=== PATIENT | male | born 1930 | race Caucasian/White ===

== ENCOUNTER 2017-11-26 18:06 | Inpatient (IN) ==
--- NOTE | 2017-11-26 18:16 | Emergency Department Note ---
Disposition Clinical Impression: Hypoglycemia Disposition: Still a Patient General Adult HPI - General Stated complaint: low sugar Time Seen by Provider: 11/26/17 18:15 - Related Data Home Medications Medication Instructions Recorded Confirmed Atenolol [Tenormin] 100 mg PO DAILY 09/30/15 11/26/17 Atorvastatin [Lipitor] 40 mg PO DAILY 09/30/15 11/26/17 Clopidogrel [Plavix] 75 mg PO DAILY 09/30/15 11/26/17 Fenofibrate,Micronized [Lofibra] 134 mg PO DAILY 09/30/15 11/26/17 Glimepiride [Amaryl] 4 mg PO DAILY 09/30/15 11/26/17 Insulin Glargine,Hum.rec.anlog 10 unit SQ HS 09/30/15 11/26/17 [Lantus Solostar] Lisinopril/Hydrochlorothiazide 1 tab PO DAILY 09/30/15 11/26/17 [Zestoretic 20-25 mg Tablet] Sitagliptin Phosphate [Januvia] 50 mg PO DAILY 09/30/15 11/26/17 Aspirin [Lo-Dose Aspirin EC] 81 mg PO DAILY 11/26/17 11/26/17 Cholecalciferol (D-3) [Vitamin D] 1,000 unit PO DAILY 11/26/17 11/26/17 [place]-3/Dha/Epa/Fish Oil [Fish Oil 1 cap PO DAILY 11/26/17 11/26/17 1,000 mg Softgel] Previous Rx's Medication Instructions Recorded Haloperidol Lactate [Haldol] 2 mg IV Q6HR PRN #5 vial 10/05/15 Allergies Allergy/AdvReac Type Severity Reaction Status Date / Time No Known Allergies Allergy Verified 11/26/17 18:41 Past Medical History - Past Medical History Medical history: Reports: CVA, diabetes, hyperlipidemia, hypertension, myocardial infarction, RA Surgical history: Reports: other Psychiatric history: Reports: no psych history - Social History Smoking Status: Former smoker Smokeless Tobacco Status: No Alcohol use: Reports: none Drug use: Reports: none Course Vital Signs Temperature 95.0 F L 11/26/17 18:11 Pulse Rate 72 11/26/17 18:11 Respiratory Rate 18 11/26/17 18:11 Blood Pressure 119/78 11/26/17 18:11 O2 Sat by Pulse Oximetry 98 11/26/17 18:11 Temperature 95.0 F L 11/26/17 18:11 Pulse Rate 72 11/26/17 18:11 Respiratory Rate 18 11/26/17 18:11 Blood Pressure 119/78 11/26/17 18:11 O2 Sat by Pulse Oximetry 98 11/26/17 18:11 Oxygen Delivery Oxygen Delivery Room Air Medical Decision Making - Lab Data Lab Results 11/26/17 Range/Units 18:14 POC Glucose 114 H (70-99) mg/dL Attestation Statement - Attestation Attestation: I examined this patient and my medical decision-making was reviewed with the Resident Physician. I agree with the documented findings, disposition and treatment plan as described except to the extent set forth below. Patient to the ED with altered mental status. The patient was laying on the floor acting strange and daughter called 911. They found him with a blood sugar in the 50s. They administered some oral glucose and orange juice and he dropped to the 40s. He was given half an amp of D50 and transported here. Patient is normally alert and oriented 3 but does not know the year. On examination he is awake and alert. Oriented 2. Moving all extremities. Lungs clear. Plan. We will check blood sugar. Basic labs. Awaiting family to arrive with his med list. Daughter present has his medication list which confirms that he is on Amaryl. Patient will need at least a 24-hour observation. Will be signed out to night clerk.
[2017-11-26] MEDS ORDERED: 0.9 % Sodium Chloride 1,000 ML IVC ONE (18:47)
--- NOTE | 2017-11-26 19:08 | Emergency Department Note ---
Disposition Clinical Impression: Hypoglycemia Disposition: Still a Patient Referrals: Pedro Tubbs MD [Primary Care Provider] - Altered Mental Status HPI - General Chief Complaint: ED General Medical Stated Complaint: low sugar Time Seen by Provider: 11/26/17 18:15 Source: EMS Mode of arrival: EMS Limitations: altered mental status, age Nursing Notes Reviewed: Yes Vital Signs Reviewed: Yes - History of Present Illness HPI Narrative: 86-year-old diabetic on glyburide who presents after an episode of shaking and jerking, decreased responsiveness, found by EMS to have a blood sugar in the 40s , was administered some D50 in route to the hospital his blood sugar responded to 150 at the current time. Patient denies any chest pain headache abdominal pain. Patient states he is not sure what happened. He somewhat confused most history is obtained from EMS and his family who is at bedside. They have to scrub when he was having as a possible seizure. He has no history of seizures, no history of strokes. Patient is not anticoagulated. MD complaint: altered mental status, confusion Onset (ago): hour(s) Time: 17:00 Timing confirmed by: family member Consistency of Symptoms: waxing and waning Context: diabetes Associated symptoms: Reports: weakness. Denies: chest pain, diaphoresis, fever Treatments prior to arrival: glucose - Related Data Home Medications Medication Instructions Recorded Confirmed Atenolol [Tenormin] 100 mg PO DAILY 09/30/15 11/26/17 Atorvastatin [Lipitor] 40 mg PO DAILY 09/30/15 11/26/17 Clopidogrel [Plavix] 75 mg PO DAILY 09/30/15 11/26/17 Fenofibrate,Micronized [Lofibra] 134 mg PO DAILY 09/30/15 11/26/17 Glimepiride [Amaryl] 4 mg PO DAILY 09/30/15 11/26/17 Insulin Glargine,Hum.rec.anlog 10 unit SQ HS 09/30/15 11/26/17 [Lantus Solostar] Lisinopril/Hydrochlorothiazide 1 tab PO DAILY 09/30/15 11/26/17 [Zestoretic 20-25 mg Tablet] Sitagliptin Phosphate [Januvia] 50 mg PO DAILY 09/30/15 11/26/17 Aspirin [Lo-Dose Aspirin EC] 81 mg PO DAILY 11/26/17 11/26/17 Cholecalciferol (D-3) [Vitamin D] 1,000 unit PO DAILY 11/26/17 11/26/17 [place]-3/Dha/Epa/Fish Oil [Fish Oil 1 cap PO DAILY 11/26/17 11/26/17 1,000 mg Softgel] Previous Rx's Medication Instructions Recorded Haloperidol Lactate [Haldol] 2 mg IV Q6HR PRN #5 vial 10/05/15 Allergies Allergy/AdvReac Type Severity Reaction Status Date / Time No Known Allergies Allergy Verified 11/26/17 18:41 All systems ED: reviewed and negative except as stated. Review of Systems: As Per HPI Constitutional: Reports: weakness. Denies: fever, chills ENT ED: Denies: ear pain Cardiovascular: Denies: chest pain Respiratory: Denies: cough, dyspnea Gastrointestinal: Denies: abdominal pain, nausea, vomiting, hematemesis, melena , hematochezia Genitourinary: Denies: urgency, dysuria Musculoskeletal: Denies: back pain Neurological: Reports: as per HPI, weakness, confusion. Denies: headache Past Medical History - Past Medical History Attestation: Yes The following information was validated with the patient. Source: patient Medical history: Reports: CVA, diabetes, hyperlipidemia, hypertension, myocardial infarction, RA Surgical history: Reports: other Psychiatric history: Reports: no psych history - Social History Smoking Status: Former smoker Smokeless Tobacco Status: No Alcohol use: Reports: none Drug use: Reports: none Physical Exam Constitutional: Confused elderly male appears in no acute distress Eyes: PERRLA, sclera anicteric ENT & Mouth: MM dry Neck: normal inspection, neck is supple Resp: CTA bilaterally, no resp distress CV: RRR, no m/g/r GI: normal inspection, soft, no guarding or rigidity Neuro: A&O2, CNII-XII grossly intact, JIMÉNEZ GCS of 15 Skin: on limited exam, skin intact with no rashes or lesions - General Limitations: altered mental status, age Course Course Narrative: Patient is a 86-year-old elderly male that is diabetic on a long-acting antihyperglycemic who had initial sugar in the 40s, after response with D50 will will prevent D5 maintenance, full septic workup for the patient, including blood cultures lactate head CT, the patient will be getting glucose and regular Accu-Cheks, the plan is likely admission to the hospitalist service, the care of this patient will be signed out to the night physician Dr. Nogueira, Dr. Carmona. Vital Signs Temperature 95.0 F L 11/26/17 18:11 Pulse Rate 72 11/26/17 18:11 Respiratory Rate 18 11/26/17 18:11 Blood Pressure 119/78 11/26/17 18:11 O2 Sat by Pulse Oximetry 98 11/26/17 18:11 Temperature 95.0 F L 11/26/17 18:11 Pulse Rate 72 11/26/17 18:11 Respiratory Rate 18 11/26/17 18:11 Blood Pressure 119/78 11/26/17 18:11 O2 Sat by Pulse Oximetry 98 11/26/17 18:11 Oxygen Delivery Oxygen Delivery Room Air Altered Mental Status - Differential Diagnosis Likely: alcoholic intoxication, altered mental status, hypoglycemia, hyponatremia - Medical Records Medical records reviewed: Yes I reviewed the patient's medical records. - Lab Data Lab results reviewed: Yes I reviewed the patient's lab results. Lab Results 11/26/17 Range/Units 18:14 POC Glucose 114 H (70-99) mg/dL TPA Checklist - LKW: 3-4.5 hrs Add. Warnings/Precautions Patient/family understanding: The patient/family members have been counseled and understood the risk, benefit , and alternatives of treatment. S.B.A.R. - Jerrod.B.A.RMarvin Transition of Care: Labs/CT Imaging Situation: Demographics, MOA Background: Presenting Complaint, Relevant PMH, Meds, & Allergies Assessment: Vital Signs, Course and respsone to treatment, Exam Concerns, Patient/Family Expectation, Pertinant Lab Results, Outstanding Labs Recommendation: Barrier(s) to disposition, Recommendation based on pending studies, treatments, or consults S.B.A.RMarvin Report Given to: Kristine Gauthier Repor Time: 19:08
[2017-11-26 19:19] LABS: Hemoglobin 14.1 g/dL (12.9-16.9); Mean Corpuscular Volume 96.7 fL (83.0-100.0); Mean Platelet Volume 10.4 fL (9.4-12.4); Platelet Count 221 K/mcL (140-400); Red Blood Count 4.55 M/mcL (4.19-5.50); Red Cell Distribution Width 14.4 % (11.5-14.5)
--- NOTE | 2017-11-26 19:33 | Emergency Department Note ---
Disposition Clinical Impression: Hypoglycemia Pneumonia Qualifiers: Pneumonia type: due to unspecified organism Laterality: left Lung location: lower lobe of lung Qualified Code(s): J18.1 - Lobar pneumonia, unspecified organism Disposition: Admitted As Inpatient Condition: Good Referrals: Pedro Tubbs MD [Primary Care Provider] - General Adult HPI - General Chief complaint: ED General Medical Stated complaint: low sugar Time Seen by Provider: 11/26/17 18:15 Source: EMS Mode of arrival: EMS Limitations: altered mental status, age Nursing Notes Reviewed: Yes Vital Signs Reviewed: Yes - History of Present Illness Pain Scale: 0 - Related Data Home Medications Medication Instructions Recorded Confirmed Atenolol [Tenormin] 100 mg PO DAILY 09/30/15 11/26/17 Atorvastatin [Lipitor] 40 mg PO DAILY 09/30/15 11/26/17 Clopidogrel [Plavix] 75 mg PO DAILY 09/30/15 11/26/17 Fenofibrate,Micronized [Lofibra] 134 mg PO DAILY 09/30/15 11/26/17 Glimepiride [Amaryl] 4 mg PO DAILY 09/30/15 11/26/17 Insulin Glargine,Hum.rec.anlog 10 unit SQ HS 09/30/15 11/26/17 [Lantus Solostar] Lisinopril/Hydrochlorothiazide 1 tab PO DAILY 09/30/15 11/26/17 [Zestoretic 20-25 mg Tablet] Sitagliptin Phosphate [Januvia] 50 mg PO DAILY 09/30/15 11/26/17 Aspirin [Lo-Dose Aspirin EC] 81 mg PO DAILY 11/26/17 11/26/17 Cholecalciferol (D-3) [Vitamin D] 1,000 unit PO DAILY 11/26/17 11/26/17 [place]-3/Dha/Epa/Fish Oil [Fish Oil 1 cap PO DAILY 11/26/17 11/26/17 1,000 mg Softgel] Previous Rx's Medication Instructions Recorded Haloperidol Lactate [Haldol] 2 mg IV Q6HR PRN #5 vial 10/05/15 Allergies Allergy/AdvReac Type Severity Reaction Status Date / Time No Known Allergies Allergy Verified 11/26/17 18:41 Constitutional: Reports: weakness. Denies: fever, chills ENT ED: Denies: ear pain Cardiovascular: Denies: chest pain Respiratory: Denies: cough, dyspnea Gastrointestinal: Denies: abdominal pain, nausea, vomiting, hematemesis, melena , hematochezia Genitourinary: Denies: urgency, dysuria Musculoskeletal: Denies: back pain Neurological: Reports: as per HPI, weakness, confusion. Denies: headache Past Medical History - Past Medical History Medical history: Reports: CVA, diabetes, hyperlipidemia, hypertension, myocardial infarction, RA Surgical history: Reports: other Psychiatric history: Reports: no psych history - Social History Smoking Status: Former smoker Smokeless Tobacco Status: No Alcohol use: Reports: none Drug use: Reports: none Physical Exam - General Limitations: altered mental status, age Course Course Narrative: Patient was assigned out to me from Dr. jackson and Dr. Vogt. Please see their note for further. On my examination the room patient is pleasant with no complaints. Head CT was normal chest x-ray showed a pleural effusion with a possible underlying pneumonia. He was initially hypoglycemic and hypothermic. He is now normothermic. Lab workup has been basically unremarkable. Family does state that he has had some recent congestion. We will start patient on azithromycin for community-acquired pneumonia. We have sent blood cultures. No leukocytosis. No signs of a UTI. We will admit patient to the hospital for further workup of his seizure-like activity and continue the D5 or the hypoglycemia. Patient does have chronic kidney disease. His creatinine is baseline for him. - Consultations Consultation #1: Dr Alberto accepted Pt in stable condition. Time: 21:40 Vital Signs Temperature 95.0 F L 11/26/17 18:11 Pulse Rate 72 11/26/17 18:11 Respiratory Rate 18 11/26/17 18:11 Blood Pressure 119/78 11/26/17 18:11 O2 Sat by Pulse Oximetry 98 11/26/17 18:11 Temperature 95.0 F L 11/26/17 18:11 Pulse Rate 62 11/26/17 21:19 Respiratory Rate 18 11/26/17 21:19 Blood Pressure 129/106 11/26/17 21:19 O2 Sat by Pulse Oximetry 97 11/26/17 21:19 Oxygen Delivery Oxygen Delivery Room Air Medical Decision Making - Medical Records Medical records reviewed: Yes I reviewed the patient's medical records. - Lab Data Lab results reviewed: Yes I reviewed the patient's lab results. Result diagrams: 11/26/17 18:47 11/26/17 18:47 Lab Results 11/26/17 11/26/17 11/26/17 Range/Units 18:14 18:47 18:47 WBC 6.5 (4.3-11.1) K/mcL RBC 4.55 (4.19-5.50) M/mcL Hgb 14.1 (12.9-16.9) g/dL Hct 44.0 (37.5-50.1) % MCV 96.7 (83.0-100.0) fL MCH 31.0 (28.0-33.3) pg MCHC 32.0 (31.6-35.5) g/dL RDW 14.4 (11.5-14.5) % Plt Count 221 (140-400) K/mcL MPV 10.4 (9.4-12.4) fL Sodium 137 (136-145) mEq/L Potassium 5.0 (3.5-5.1) mEq/L Chloride 104 (98-107) mEq/L Carbon Dioxide 25 (23-29) mEq/L BUN 43 H (8-23) mg/dL Creatinine 2.62 H (0.70-1.30) mg/dL Est GFR ( Amer) 28 L (> 60) Est GFR (Non-Af Amer) 23 L (> 60) BUN/Creatinine Ratio 16 (6-26) Glucose 192 H (70-105) mg/dL POC Glucose 114 H (70-99) mg/dL Calculated Osmolality 300 (280-300) Lactic Acid (0.5-2.2) mmol/L Calcium 9.4 (8.6-10.3) mg/dL Total Bilirubin (0.3-1.0) mg/dL Direct Bilirubin (0.0-0.2) mg/dL Indirect Bilirubin (0.0-1.2) mg/dL AST (13-39) Units/L ALT (7-52) Units/L Alkaline Phosphatase (34-104) Units/L Serum Total Protein (6.4-8.9) g/dL Albumin (3.5-5.7) g/dL Globulin (2.4-3.5) g/dL Albumin/Globulin Ratio (1.1-2.2) Lipase (11-82) Units/L Urine Color (Yellow) Urine Clarity (Clear) Urine pH (5.0-8.0) pH Units Ur Specific [place] (1.010-1.025) Urine Protein (Neg-Trace) mg/dL Urine Glucose (UA) (Normal) mg/dL Urine Ketones (Negative) mg/dL Urine Blood (Negative) Urine Nitrite (Negative) Urine Bilirubin (Negative) Urine Urobilinogen (Normal) mg/dL Ur Leukocyte Esterase (Negative) Urine Microscopic RBC (0-3) per hpf Urine Microscopic WBC (0-3) per hpf Ur Squamous Epith Cells (None-Few) per lpf Urine Bacteria (None-Few) per hpf Hyaline Casts (None-Few) per lpf Ur Culture Indicated? (NO) Specimen Rejected 11/26/17 11/26/17 11/26/17 Range/Units 19:36 19:39 20:26 WBC (4.3-11.1) K/mcL RBC (4.19-5.50) M/mcL Hgb (12.9-16.9) g/dL Hct (37.5-50.1) % MCV (83.0-100.0) fL MCH (28.0-33.3) pg MCHC (31.6-35.5) g/dL RDW (11.5-14.5) % Plt Count (140-400) K/mcL MPV (9.4-12.4) fL Sodium (136-145) mEq/L Potassium (3.5-5.1) mEq/L Chloride (98-107) mEq/L Carbon Dioxide (23-29) mEq/L BUN (8-23) mg/dL Creatinine (0.70-1.30) mg/dL Est GFR ( Amer) (> 60) Est GFR (Non-Af Amer) (> 60) BUN/Creatinine Ratio (6-26) Glucose (70-105) mg/dL POC Glucose (70-99) mg/dL Calculated Osmolality (280-300) Lactic Acid (0.5-2.2) mmol/L Calcium (8.6-10.3) mg/dL Total Bilirubin 0.9 (0.3-1.0) mg/dL Direct Bilirubin 0.2 (0.0-0.2) mg/dL Indirect Bilirubin 0.7 (0.0-1.2) mg/dL AST 39 (13-39) Units/L ALT 28 (7-52) Units/L Alkaline Phosphatase 29 L (34-104) Units/L Serum Total Protein 6.4 (6.4-8.9) g/dL Albumin 3.3 L (3.5-5.7) g/dL Globulin 3.1 (2.4-3.5) g/dL Albumin/Globulin Ratio 1.1 (1.1-2.2) Lipase 76 (11-82) Units/L Urine Color Yellow (Yellow) Urine Clarity Clear (Clear) Urine pH 7.0 (5.0-8.0) pH Units Ur Specific [place] 1.020 (1.010-1.025) Urine Protein 30 H (Neg-Trace) mg/dL Urine Glucose (UA) Normal (Normal) mg/dL Urine Ketones Negative (Negative) mg/dL Urine Blood Negative (Negative) Urine Nitrite Negative (Negative) Urine Bilirubin Negative (Negative) Urine Urobilinogen Normal (Normal) mg/dL Ur Leukocyte Esterase Negative (Negative) Urine Microscopic RBC 0-3 (0-3) per hpf Urine Microscopic WBC 0-3 (0-3) per hpf Ur Squamous Epith Cells Moderate H (None-Few) per lpf Urine Bacteria None Seen (None-Few) per hpf Hyaline Casts None Seen (None-Few) per lpf Ur Culture Indicated? NO (NO) Specimen Rejected Hemolyzed 11/26/17 Range/Units 20:26 WBC (4.3-11.1) K/mcL RBC (4.19-5.50) M/mcL Hgb (12.9-16.9) g/dL Hct (37.5-50.1) % MCV (83.0-100.0) fL MCH (28.0-33.3) pg MCHC (31.6-35.5) g/dL RDW (11.5-14.5) % Plt Count (140-400) K/mcL MPV (9.4-12.4) fL Sodium (136-145) mEq/L Potassium (3.5-5.1) mEq/L Chloride (98-107) mEq/L Carbon Dioxide (23-29) mEq/L BUN (8-23) mg/dL Creatinine (0.70-1.30) mg/dL Est GFR ( Amer) (> 60) Est GFR (Non-Af Amer) (> 60) BUN/Creatinine Ratio (6-26) Glucose (70-105) mg/dL POC Glucose (70-99) mg/dL Calculated Osmolality (280-300) Lactic Acid 2.1 (0.5-2.2) mmol/L Calcium (8.6-10.3) mg/dL Total Bilirubin (0.3-1.0) mg/dL Direct Bilirubin (0.0-0.2) mg/dL Indirect Bilirubin (0.0-1.2) mg/dL AST (13-39) Units/L ALT (7-52) Units/L Alkaline Phosphatase (34-104) Units/L Serum Total Protein (6.4-8.9) g/dL Albumin (3.5-5.7) g/dL Globulin (2.4-3.5) g/dL Albumin/Globulin Ratio (1.1-2.2) Lipase (11-82) Units/L Urine Color (Yellow) Urine Clarity (Clear) Urine pH (5.0-8.0) pH Units Ur Specific [place] (1.010-1.025) Urine Protein (Neg-Trace) mg/dL Urine Glucose (UA) (Normal) mg/dL Urine Ketones (Negative) mg/dL Urine Blood (Negative) Urine Nitrite (Negative) Urine Bilirubin (Negative) Urine Urobilinogen (Normal) mg/dL Ur Leukocyte Esterase (Negative) Urine Microscopic RBC (0-3) per hpf Urine Microscopic WBC (0-3) per hpf Ur Squamous Epith Cells (None-Few) per lpf Urine Bacteria (None-Few) per hpf Hyaline Casts (None-Few) per lpf Ur Culture Indicated? (NO) Specimen Rejected - EKG Data EKG #1 EKG attestation: Yes I reviewed and interpreted this EKG. EKG results narrative: A. fib at a rate of 68. QRS duration is Y3. QT is 414. QTC is 431. No signs of acute ischemia. No old EKG to compare to.
[2017-11-26 19:37] LABS: Calcium 9.4 mg/dL (8.6-10.3)
[2017-11-26 19:57] LABS: Bilirubin,Urine Negative (Negative); Blood,Urine Negative (Negative); Clarity,Urine Clear (Clear); Color,Urine Yellow (Yellow); Glucose,Urine (UA) Normal (Normal); Ketones,Urine Negative (Negative); Leukocyte Esterase,Urine Negative (Negative); Nitrite,Urine Negative (Negative); Protein,Urine 30 mg/dL (Neg-Trace); Urobilinogen,Urine Normal (Normal)
[2017-11-26 19:59] LABS: Bacteria,Urine None Seen per hpf (None-Few); Hyaline Casts,Urine None Seen per lpf (None-Few); RBC,Urine 0-3 per hpf (0-3); Squamous Epithelial Cell,Urine Moderate per lpf (None-Few); WBC,Urine 0-3 per hpf (0-3)
[2017-11-26] MEDS: D5% in 0.45% NACL 1,000 ML IVC SCH (20:00)
[2017-11-26 21:09] LABS: Albumin 3.3 g/dL (3.5-5.7); Albumin/Globulin Ratio 1.1 (1.1-2.2); Bilirubin,Direct 0.2 mg/dL (0.0-0.2); Bilirubin,Indirect 0.7 mg/dL (0.0-1.2); Bilirubin,Total 0.9 mg/dL (0.3-1.0); Globulin 3.1 g/dL (2.4-3.5); Total Protein 6.4 g/dL (6.4-8.9)
[2017-11-26] MEDS ORDERED: cefTRIAXone 1,000 MG in Water for inj. (sterile) 20 ML 10 ML IVP ONE (21:35)
[2017-11-26] MEDS ORDERED: Azithromycin 500 MG in D5% in Water 250 ML IVPB ONE (21:35)
--- NOTE | 2017-11-26 22:06 | Emergency Department Note ---
Disposition Clinical Impression: Hypoglycemia Pneumonia Qualifiers: Pneumonia type: due to unspecified organism Laterality: left Lung location: lower lobe of lung Qualified Code(s): J18.1 - Lobar pneumonia, unspecified organism Disposition: Admitted As Inpatient Condition: Good Referrals: Pedro Tubbs MD [Primary Care Provider] - General Adult HPI - General Chief complaint: ED General Medical Stated complaint: low sugar Time Seen by Provider: 11/26/17 18:15 Source: EMS Mode of arrival: EMS Limitations: altered mental status, age Nursing Notes Reviewed: Yes Vital Signs Reviewed: Yes - History of Present Illness Pain Scale: 0 - Related Data Home Medications Medication Instructions Recorded Confirmed Atenolol [Tenormin] 100 mg PO DAILY 09/30/15 11/26/17 Atorvastatin [Lipitor] 40 mg PO DAILY 09/30/15 11/26/17 Clopidogrel [Plavix] 75 mg PO DAILY 09/30/15 11/26/17 Fenofibrate,Micronized [Lofibra] 134 mg PO DAILY 09/30/15 11/26/17 Glimepiride [Amaryl] 4 mg PO DAILY 09/30/15 11/26/17 Insulin Glargine,Hum.rec.anlog 10 unit SQ HS 09/30/15 11/26/17 [Lantus Solostar] Lisinopril/Hydrochlorothiazide 1 tab PO DAILY 09/30/15 11/26/17 [Zestoretic 20-25 mg Tablet] Sitagliptin Phosphate [Januvia] 50 mg PO DAILY 09/30/15 11/26/17 Aspirin [Lo-Dose Aspirin EC] 81 mg PO DAILY 11/26/17 11/26/17 Cholecalciferol (D-3) [Vitamin D] 1,000 unit PO DAILY 11/26/17 11/26/17 [place]-3/Dha/Epa/Fish Oil [Fish Oil 1 cap PO DAILY 11/26/17 11/26/17 1,000 mg Softgel] Previous Rx's Medication Instructions Recorded Haloperidol Lactate [Haldol] 2 mg IV Q6HR PRN #5 vial 10/05/15 Allergies Allergy/AdvReac Type Severity Reaction Status Date / Time No Known Allergies Allergy Verified 11/26/17 18:41 Constitutional: Reports: weakness. Denies: fever, chills ENT ED: Denies: ear pain Cardiovascular: Denies: chest pain Respiratory: Denies: cough, dyspnea Gastrointestinal: Denies: abdominal pain, nausea, vomiting, hematemesis, melena , hematochezia Genitourinary: Denies: urgency, dysuria Musculoskeletal: Denies: back pain Neurological: Reports: as per HPI, weakness, confusion. Denies: headache Past Medical History - Past Medical History Medical history: Reports: CVA, diabetes, hyperlipidemia, hypertension, myocardial infarction, RA Surgical history: Reports: other Psychiatric history: Reports: no psych history - Social History Smoking Status: Former smoker Smokeless Tobacco Status: No Alcohol use: Reports: none Drug use: Reports: none Physical Exam - General Limitations: altered mental status, age Course Vital Signs Temperature 95.0 F L 11/26/17 18:11 Pulse Rate 72 11/26/17 18:11 Respiratory Rate 18 11/26/17 18:11 Blood Pressure 119/78 11/26/17 18:11 O2 Sat by Pulse Oximetry 98 11/26/17 18:11 Temperature 95.0 F L 11/26/17 18:11 Pulse Rate 62 11/26/17 21:19 Respiratory Rate 18 11/26/17 21:19 Blood Pressure 129/106 11/26/17 21:19 O2 Sat by Pulse Oximetry 97 11/26/17 21:19 Oxygen Delivery Oxygen Delivery Room Air Medical Decision Making - Lab Data Result diagrams: 11/26/17 18:47 11/26/17 18:47 Lab Results 11/26/17 11/26/17 11/26/17 Range/Units 18:14 18:47 18:47 WBC 6.5 (4.3-11.1) K/mcL RBC 4.55 (4.19-5.50) M/mcL Hgb 14.1 (12.9-16.9) g/dL Hct 44.0 (37.5-50.1) % MCV 96.7 (83.0-100.0) fL MCH 31.0 (28.0-33.3) pg MCHC 32.0 (31.6-35.5) g/dL RDW 14.4 (11.5-14.5) % Plt Count 221 (140-400) K/mcL MPV 10.4 (9.4-12.4) fL Sodium 137 (136-145) mEq/L Potassium 5.0 (3.5-5.1) mEq/L Chloride 104 (98-107) mEq/L Carbon Dioxide 25 (23-29) mEq/L BUN 43 H (8-23) mg/dL Creatinine 2.62 H (0.70-1.30) mg/dL Est GFR ( Amer) 28 L (> 60) Est GFR (Non-Af Amer) 23 L (> 60) BUN/Creatinine Ratio 16 (6-26) Glucose 192 H (70-105) mg/dL POC Glucose 114 H (70-99) mg/dL Calculated Osmolality 300 (280-300) Lactic Acid (0.5-2.2) mmol/L Calcium 9.4 (8.6-10.3) mg/dL Total Bilirubin (0.3-1.0) mg/dL Direct Bilirubin (0.0-0.2) mg/dL Indirect Bilirubin (0.0-1.2) mg/dL AST (13-39) Units/L ALT (7-52) Units/L Alkaline Phosphatase (34-104) Units/L Serum Total Protein (6.4-8.9) g/dL Albumin (3.5-5.7) g/dL Globulin (2.4-3.5) g/dL Albumin/Globulin Ratio (1.1-2.2) Lipase (11-82) Units/L Urine Color (Yellow) Urine Clarity (Clear) Urine pH (5.0-8.0) pH Units Ur Specific [place] (1.010-1.025) Urine Protein (Neg-Trace) mg/dL Urine Glucose (UA) (Normal) mg/dL Urine Ketones (Negative) mg/dL Urine Blood (Negative) Urine Nitrite (Negative) Urine Bilirubin (Negative) Urine Urobilinogen (Normal) mg/dL Ur Leukocyte Esterase (Negative) Urine Microscopic RBC (0-3) per hpf Urine Microscopic WBC (0-3) per hpf Ur Squamous Epith Cells (None-Few) per lpf Urine Bacteria (None-Few) per hpf Hyaline Casts (None-Few) per lpf Ur Culture Indicated? (NO) Specimen Rejected 11/26/17 11/26/17 11/26/17 Range/Units 19:36 19:39 20:26 WBC (4.3-11.1) K/mcL RBC (4.19-5.50) M/mcL Hgb (12.9-16.9) g/dL Hct (37.5-50.1) % MCV (83.0-100.0) fL MCH (28.0-33.3) pg MCHC (31.6-35.5) g/dL RDW (11.5-14.5) % Plt Count (140-400) K/mcL MPV (9.4-12.4) fL Sodium (136-145) mEq/L Potassium (3.5-5.1) mEq/L Chloride (98-107) mEq/L Carbon Dioxide (23-29) mEq/L BUN (8-23) mg/dL Creatinine (0.70-1.30) mg/dL Est GFR ( Amer) (> 60) Est GFR (Non-Af Amer) (> 60) BUN/Creatinine Ratio (6-26) Glucose (70-105) mg/dL POC Glucose (70-99) mg/dL Calculated Osmolality (280-300) Lactic Acid (0.5-2.2) mmol/L Calcium (8.6-10.3) mg/dL Total Bilirubin 0.9 (0.3-1.0) mg/dL Direct Bilirubin 0.2 (0.0-0.2) mg/dL Indirect Bilirubin 0.7 (0.0-1.2) mg/dL AST 39 (13-39) Units/L ALT 28 (7-52) Units/L Alkaline Phosphatase 29 L (34-104) Units/L Serum Total Protein 6.4 (6.4-8.9) g/dL Albumin 3.3 L (3.5-5.7) g/dL Globulin 3.1 (2.4-3.5) g/dL Albumin/Globulin Ratio 1.1 (1.1-2.2) Lipase 76 (11-82) Units/L Urine Color Yellow (Yellow) Urine Clarity Clear (Clear) Urine pH 7.0 (5.0-8.0) pH Units Ur Specific [place] 1.020 (1.010-1.025) Urine Protein 30 H (Neg-Trace) mg/dL Urine Glucose (UA) Normal (Normal) mg/dL Urine Ketones Negative (Negative) mg/dL Urine Blood Negative (Negative) Urine Nitrite Negative (Negative) Urine Bilirubin Negative (Negative) Urine Urobilinogen Normal (Normal) mg/dL Ur Leukocyte Esterase Negative (Negative) Urine Microscopic RBC 0-3 (0-3) per hpf Urine Microscopic WBC 0-3 (0-3) per hpf Ur Squamous Epith Cells Moderate H (None-Few) per lpf Urine Bacteria None Seen (None-Few) per hpf Hyaline Casts None Seen (None-Few) per lpf Ur Culture Indicated? NO (NO) Specimen Rejected Hemolyzed 11/26/17 Range/Units 20:26 WBC (4.3-11.1) K/mcL RBC (4.19-5.50) M/mcL Hgb (12.9-16.9) g/dL Hct (37.5-50.1) % MCV (83.0-100.0) fL MCH (28.0-33.3) pg MCHC (31.6-35.5) g/dL RDW (11.5-14.5) % Plt Count (140-400) K/mcL MPV (9.4-12.4) fL Sodium (136-145) mEq/L Potassium (3.5-5.1) mEq/L Chloride (98-107) mEq/L Carbon Dioxide (23-29) mEq/L BUN (8-23) mg/dL Creatinine (0.70-1.30) mg/dL Est GFR ( Amer) (> 60) Est GFR (Non-Af Amer) (> 60) BUN/Creatinine Ratio (6-26) Glucose (70-105) mg/dL POC Glucose (70-99) mg/dL Calculated Osmolality (280-300) Lactic Acid 2.1 (0.5-2.2) mmol/L Calcium (8.6-10.3) mg/dL Total Bilirubin (0.3-1.0) mg/dL Direct Bilirubin (0.0-0.2) mg/dL Indirect Bilirubin (0.0-1.2) mg/dL AST (13-39) Units/L ALT (7-52) Units/L Alkaline Phosphatase (34-104) Units/L Serum Total Protein (6.4-8.9) g/dL Albumin (3.5-5.7) g/dL Globulin (2.4-3.5) g/dL Albumin/Globulin Ratio (1.1-2.2) Lipase (11-82) Units/L Urine Color (Yellow) Urine Clarity (Clear) Urine pH (5.0-8.0) pH Units Ur Specific [place] (1.010-1.025) Urine Protein (Neg-Trace) mg/dL Urine Glucose (UA) (Normal) mg/dL Urine Ketones (Negative) mg/dL Urine Blood (Negative) Urine Nitrite (Negative) Urine Bilirubin (Negative) Urine Urobilinogen (Normal) mg/dL Ur Leukocyte Esterase (Negative) Urine Microscopic RBC (0-3) per hpf Urine Microscopic WBC (0-3) per hpf Ur Squamous Epith Cells (None-Few) per lpf Urine Bacteria (None-Few) per hpf Hyaline Casts (None-Few) per lpf Ur Culture Indicated? (NO) Specimen Rejected Attestation Statement - Attestation Attestation: I, Moises Carmona MD, personally evaluated this patient and discussed their management with the resident physician. I reviewed the resident's note and agree with the documented findings, medical decision making, and plan of care. This patient was signed out at shift change from Dr. Vogt and Dr. Cervantes. Please refer to their notes for complete details of the history and physical examination. Patient presented after a hypoglycemic episode and apparent seizure activity, likely secondary to hypoglycemia. No history of seizures. He was hypothermic. On examination patient is a well-developed well-nourished elderly male in no acute distress. He is alert and oriented. There is no cyanosis or diaphoresis. Breath sounds are decreased but clear and equal bilaterally. Heart regular. Abdomen soft and nontender with present bowel sounds. Labs reviewed. Head CT negative. Chest x-ray shows a small left pleural effusion, cannot rule out superimposed atelectasis or infiltrate. The hospitalist, Dr. Soares, was consulted and accepted admission of the patient.
--- NOTE | 2017-11-26 22:53 | Internal Med History&Physical ---
<Kelsea Cruz - Last Filed: 11/27/17 00:01> Date of Encounter: 11/27/17 Time of Encounter: 10:15 Internal Medicine - H&P: HPI Chief complaint: seizure and hypoglycemia Admitted From: Home Plans for Post Hospital Care: Home History of present illness: Mr. Arredondo is a 86 year old male with a pmh of CKD stage IV, hypertension, stroke, and CAD with stents who presented to the ED via ambulance from home after having hypoglycemia and a seizure. Patient lives along but Patient's daughter states that her niece normally comes over in the morning and this morning she was unable to. When she arrived at 5:00pm looked like he had not gotten out of bed all day or taken any of his medications. She noticed that he was acting funny and mumbling which she recognized it as his usual behavior when he is hypoglycemic and gave him orange juice. While she was gone getting the blood glucose monitor he fell from his bed to the floor and had a seizure. She states that his whole body was shaking and he did have incontinence. By the time the ambulance arrived he had stopped and she thinks it was between 2- 4 minutes. He does not remember the event. EMS arrived and his glucose was 52 and after giving glucagon patient's glucose was rechecked and was at 44. Per ED note, patient was given half an amp of D50 during transport to [facility]. In the ED Head CT showed no acute intercranial abnormalities but the chest x-ray did show a small left pleural effusion with a possible underlying pneumonia. EKG showed rate controlled afib which he does not have a history of. He was initially hypoglycemic and hypothermic. Hypothermia and hypoglycema have resolved. He is still confused and does not remember the events of today. He does admit to recently having bronchitis which is PCP gave him Cefdinir for 10 days of which he finished on Friday. He has been having rhinorrhea, congestion, cough with green, rodgers sputum. He was feeling better over the last couple of days though. Denies weakness, dizziness, chest pain, hemoptysis, syncope, palipations, melena , hematuria, BRAUN, or rashes. Past Med Surg Social Fam HX - Past Medical History Source: patient Medical history: CVA, diabetes, hyperlipidemia, hypertension, myocardial infarction (with stent placement years ago ), RA Psychiatric history: no psych history - Past Surgical History Surgical History: other Additional surgical history: Heart stent x1 - Social History Smoking Status: Former smoker Smokeless Tobacco Status: No Alcohol use: none Drug use: none - Family History Maternal Living Status: Internal Medicine - H&P: Meds Atenolol [Tenormin] 100 mg PO DAILY 09/30/15 [History] Atorvastatin [Lipitor] 40 mg PO DAILY 09/30/15 [History] Clopidogrel [Plavix] 75 mg PO DAILY 09/30/15 [History] Fenofibrate,Micronized [Lofibra] 134 mg PO DAILY 09/30/15 [History] Glimepiride [Amaryl] 4 mg PO DAILY 09/30/15 [History] Insulin Glargine,Hum.rec.anlog [Lantus Solostar] 10 unit SQ HS 09/30/15 [History ] Lisinopril/Hydrochlorothiazide [Zestoretic 20-25 mg Tablet] 1 tab PO DAILY 09/29 [History] Sitagliptin Phosphate [Januvia] 50 mg PO DAILY 09/30/15 [History] Haloperidol Lactate [Haldol] 2 mg IV Q6HR PRN #5 vial 10/05/15 [Rx] Aspirin [Lo-Dose Aspirin EC] 81 mg PO DAILY 11/26/17 [History] Cholecalciferol (D-3) [Vitamin D] 1,000 unit PO DAILY 11/26/17 [History] [place]-3/Dha/Epa/Fish Oil [Fish Oil 1,000 mg Softgel] 1 cap PO DAILY 11/26/17 [ History] 3 Allergy/AdvReac Type Severity Reaction Status Date / Time No Known Allergies Allergy Verified 11/26/17 18:41 All Systems PM: A 10-system review of systems was performed and is negative for pertinent findings except as documented above in the HPI. - Constitutional Vitals: Temp Pulse Resp BP Pulse Ox 95.0 F L 62 18 129/106 97 11/26/17 18:11 11/26/17 21:19 11/26/17 21:19 11/26/17 21:19 11/26/17 21:19 Exam: Constitutional: A&O x 2, Alert, in no acute distress, well nourished, well developed. Head: Normocephalic, atraumatic, normal contour and symmetric, no masses, lesions or scars Heart: irregularly, irregular, no murmurs Lungs: wheezing present on left side, decrease air movement in bases Abdomen: Soft, nondistended, nontender, and no masses palpable. Extremities: No clubbing, cyanosis, or edema, capillary refill <2sec. Skin: Skin warm and dry, no lesions, no rashes, no jaundice Neurologic: no focal deficits, strength within normal limits in all extremities Psych: Cooperative with exam, good eye contact, cognitive function intact, judgment good insight good, speech clear, thought process logical, and goal directed Internal Med - H&P Results - Labs CBC & Chem 7: 11/26/17 18:47 11/26/17 18:47 Labs: Short CBC 11/26/17 Range/Units 18:47 WBC 6.5 (4.3-11.1) K/mcL Hgb 14.1 (12.9-16.9) g/dL Hct 44.0 (37.5-50.1) % Plt Count 221 (140-400) K/mcL BMP 11/26/17 18:47 Sodium 137 Potassium 5.0 Chloride 104 Carbon Dioxide 25 BUN 43 H Creatinine 2.62 H Glucose 192 H Calcium 9.4 Liver Function 11/26/17 Range/Units 20:26 Total Bilirubin 0.9 (0.3-1.0) mg/dL Direct Bilirubin 0.2 (0.0-0.2) mg/dL AST 39 (13-39) Units/L ALT 28 (7-52) Units/L Alkaline Phosphatase 29 L (34-104) Units/L Albumin 3.3 L (3.5-5.7) g/dL Urine 11/26/17 Range/Units 19:39 Urine Color Yellow (Yellow) Urine Clarity Clear (Clear) Urine pH 7.0 (5.0-8.0) pH Units Ur Specific [place] 1.020 (1.010-1.025) Urine Protein 30 H (Neg-Trace) mg/dL Urine Glucose (UA) Normal (Normal) mg/dL - EKG Data -: EKG Interpreted by Myself - EKG Data EKG comments: rate controlled afib 11/26/17 23:36 - Impressions ITS Impressions Chest X-Ray 11/26/17 18:17 IMPRESSION: Findings suggestive of small left pleural effusion. Superimposed partial atelectasis or mild pneumonia is not excluded. D/ / 11/26/2017 19:28:55 Bobby Silva MD / brian Interpreting Provider: Bobby Silva MD Head CT 11/26/17 18:20 IMPRESSION: No acute intracranial abnormality. D/ / Eduardo Rivas MD / Eduardo Rivas MD Interpreting Provider: Eduardo Rivas MD - Assessment and plan (1) Hypoglycemia Current Visit: Yes Status: Acute Assessment and plan: Home medications include Januvia, lantus 10 units, and Amaryl without any changes for years. Hypoglycemia definitive origin unknown possibly 2/2 to Amaryl , pneumonia, or wrong dose of lantus. Currently on D5 1/2 NS. Glucose 192 at 18: 47. Currently resolved but will continue to monitor every 2 hours. Plan: - continue D5 1/2 NS - Accu checks Q2 hr - low sliding scale for correction ACHS - hypoglycemic protocol (2) Diabetes mellitus Current Visit: No Status: Chronic Assessment and plan: See above. Will discontinue all home meds for now and place on low sliding scale. 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 negative. No further work-up needed. (4) Afib Current Visit: Yes Status: Acute Assessment and plan: EKG shows afib. No known history of prior afib. Unsure of how long. will need senior care anticoagulation but will hold tonight due to increase risk of hemorrhage with seizure activity and fall from bed. Plan: - Echo ordered - Labs: TSH - continue home Plavix -cardiology consulted for termite control representative management of new onset afib Qualifiers: Atrial fibrillation type: unspecified Qualified Code(s): I48.91 - Unspecified atrial fibrillation (5) Community acquired pneumonia Current Visit: Yes Status: Acute Assessment and plan: small left lower lobe pleural effusion on cxr, hypothermia upon arrival, and wheezing on exam. Patient has not been hospitalized since 2016. No WBC count. Just completed course of Cefdinir on Friday. Plan: - Azithromycin and Ceftriaxone (day 1) - blood cultures ordered - sputum culture pending - strep and legionella pending - Duoneb Q6H scheduled, Q4H prn Qualifiers: Laterality: left Lung location: lower lobe of lung Qualified Code(s): J18.1 - Lobar pneumonia, unspecified organism (6) CKD stage 4 due to type 2 diabetes mellitus Current Visit: Yes Status: Acute Assessment and plan: at baseline creatinine. will continue to monitor and avoid nephrotoxic meds. (7) DVT prophylaxis Current Visit: Yes Status: Acute Assessment and plan: heparin sq - Time Spent With Patient Total time spent is greater than 50% in coordination of care (as documented) at patient's floor/unit and/or counseling patient: <TrevonShamika - Last Filed: 11/27/17 04:04> Date of Encounter: 11/27/17 Internal Medicine - H&P: HPI History of present illness: Mr. Arredondo is a 86 year old male All Systems PM: A 10-system review of systems was performed and is negative for pertinent findings except as documented above in the HPI. - Constitutional Vitals: Temp Pulse Resp BP Pulse Ox 97.8 F 64 14 133/61 100 11/26/17 23:56 11/26/17 23:56 11/26/17 23:56 11/26/17 23:56 11/26/17 23:56 Internal Med - H&P Results - Labs CBC & Chem 7: 11/27/17 00:38 11/27/17 00:38 Labs: Short CBC 11/27/17 Range/Units 00:38 WBC 6.2 (4.3-11.1) K/mcL Hgb 12.2 L D (12.9-16.9) g/dL Hct 37.9 (37.5-50.1) % Plt Count 181 (140-400) K/mcL Neutrophils # 4.4 (1.6-8.9) K/mcL BMP 11/27/17 00:38 Sodium 135 L Potassium 4.4 Chloride 107 Carbon Dioxide 22 L BUN 40 H Creatinine 2.19 H Glucose 207 H Calcium 8.3 L - Attending Attestation I have seen and examined this patient independently. I have discussed with resident physician Dr. Cruz regarding the management. Agree with the documentation. 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 (2) Hypoglycemia Current Visit: Yes Status: Acute (3) CKD stage 4 due to type 2 diabetes mellitus Current Visit: Yes Status: Acute (4) Community acquired pneumonia Current Visit: Yes Status: Acute Qualifiers: Laterality: left Lung location: lower lobe of lung Qualified Code(s): J18.1 - Lobar pneumonia, unspecified organism (5) Seizure Current Visit: Yes Status: Acute (6) Afib Current Visit: Yes Status: Acute Qualifiers: Atrial fibrillation type: unspecified Qualified Code(s): I48.91 - Unspecified atrial fibrillation (7) DVT prophylaxis Current Visit: Yes Status: Acute - Time Spent With Patient Total time spent is greater than 50% in coordination of care (as documented) at patient's floor/unit and/or counseling patient:
[2017-11-26] MEDS ORDERED: Acetaminophen 325 MG TABLET PO PRN (23:47)
[2017-11-26] MEDS ORDERED: Naloxone 0.4 MG/ML INJ IVP PRN (23:47)
[2017-11-26] MEDS ORDERED: *HR* Dextrose 50 % in Water (Syg) 50 ML SYRINGE IVP PRN (23:50)
[2017-11-26] MEDS ORDERED: Dextrose Gel 15 GM/37.5 ML TUBE PO PRN ×2 (23:50)
[2017-11-26] MEDS ORDERED: D5% in Water 1,000 ML IVC PRN (23:50)
[2017-11-26] MEDS ORDERED: Ipratropium/Albuterol Neb 3 ML IH PRN (23:54)
[2017-11-27] MEDS: Ipratropium/Albuterol Neb 3 ML IH SCH ×5 (00:26→22:02)
[2017-11-27 01:18] LABS: Basophils % 0.3 %; Hematocrit 37.9 % (37.5-50.1); Immature Granulocytes % 0.6 % (0-4); Lymphocytes # 1.2 K/mcL (0.6-4.6); Lymphocytes % 19.8 %; Mean Corpuscular HGB Conc 32.2 g/dL (31.6-35.5); Mean Corpuscular Volume 96.2 fL (83.0-100.0); Mean Platelet Volume 10.6 fL (9.4-12.4); Monocytes # 0.5 K/mcL (0.0-1.3); Monocytes % 8.4 %; Neutrophils # 4.4 K/mcL (1.6-8.9); Platelet Count 181 K/mcL (140-400); Red Blood Count 3.94 M/mcL (4.19-5.50); Red Cell Distribution Width 14.2 % (11.5-14.5); Segmented Neutrophils % 70.9 %
[2017-11-27 01:28] LABS: Hemoglobin 12.2 g/dL (12.9-16.9)
[2017-11-27 01:36] LABS: Calcium 8.3 mg/dL (8.6-10.3); Magnesium 1.7 mg/dL (1.6-2.6); Phosphorous 2.6 mg/dL (2.7-4.5); Potassium 4.4 mEq/L (3.5-5.1)
[2017-11-27 05:07] LABS: Thyroid Stimulating Hormone 0.921 mcIU/mL (0.340-5.600)
[2017-11-27] MEDS: *HR* Heparin 5,000 UNIT/ML VIAL SQ SCH ×2 (05:17→17:31)
[2017-11-27 07:30] LABS: Estimated Average Glucose 128 mg/dl; Hemoglobin A1C 6.1 %
[2017-11-27] MEDS: Insulin LISPRO 300 UNITS/3 ML VIAL SQ SCH ×3 (07:52→17:24)
--- NOTE | 2017-11-27 09:03 | Cardiology Consult Note ---
Date of Encounter: 11/27/17 Time of Encounter: 08:30 Assessment and Plan (1) Afib Current Visit: Yes Status: Acute Newly noted atrial fibrillation with controlled ventricular response. Chronicity unclear. Patient is asymptomatic. Avg HR overnight was 66 afib. No pause noted. Home medications include Atenolol 100 mg daily. TSH normal. No significant electrolyte abnormality noted. Echo ordered by primary team. CHA2Ds Vasc= 7 (CAD, HTN, age, DMII, prior CVA). Patient lives alone, denies prior falls. Close family observation/assistance reported. Ideally, given high risk for CVA, recommend long-term anticoagulation. Given CKD-IV, recommend Coumadin. Patient will consider. If agrees, recommend referral to Coumadin Clinic. Will further discuss with Dr. Fernandez. Qualifiers: Atrial fibrillation type: persistent Qualified Code(s): I48.1 - Persistent atrial fibrillation (2) Altered mental status Current Visit: No Status: Resolved Presented with AMS and reported seizure, now resolved. No prior hx. Likely secondary to hypoglycemia. Qualifiers: Altered mental status type: delirium Qualified Code(s): R41.0 - Disorientation, unspecified (3) CAD (coronary artery disease) Current Visit: Yes Status: Chronic Hx of CAD s/p prior PCI ~10 + years ago. No chest pain reported. Troponin negative. No ischemic ECG changes noted. Home medications include asa, statin, plavix, and BB. Qualifiers: Coronary Disease-Associated Artery/Lesion type: [place] artery [place] vs. transplanted heart: [place] heart Associated angina: without angina Qualified Code(s): I25.10 - Atherosclerotic heart disease of [place] coronary artery without angina pectoris Discussion w patient/family: The assessment and plan as outlined above was discussed with the patient and/or family members who expressed understanding and agreement. All questions were answered. Thank you for involving us in the care of your patient. Please call with any questions. The patient will be discussed and reviewed with Dr. Fernandez; changes to be made accordingly. History of Present Illness Consult date: 11/27/17 Requesting physician: Kelsea Cruz Consult reason: Afib Chief complaint: AMS History of present illness: Mr. Arredondo is a 86 year old male with PMHx significant of CKD-IV, HTN, prior CVA, CAD s/p remote PCI, DMII and DMII who presented to the ED after reported witnessed seizure at home yesterday in the setting of hypoglycemia. Per family reports, patient has had a "bad cold" over the past 1.5 week, was treated with po antibiotics; yesterday patient was not himself, his daughter checked his blood glucose and found it to be in the 50's, she gave him orange juice but then he fell and started having convulsions. EMS called, he was given glucagon, blood sugar was checked and was 44. Upon arrival to the ED, mentation had improved. CT head negative for acute process. He was hypothermic upon arrival with Temp 95.0 degrees Fahrenheit. CXR demonstrated small left pleural effusion. ECG demonstrated atrial fibrillation with controlled ventricular response. No recent CV testing. Past Med Surg Social Fam HX - Past Medical History Attestation: Yes The following information was validated with the patient. Source: patient Medical history: coronary artery disease, CVA, diabetes, hyperlipidemia, hypertension, myocardial infarction (with stent placement years ago ), RA Psychiatric history: no psych history - Past Surgical History Surgical History: angioplasty/stent Additional surgical history: Heart stent x1 - Social History Smoking Status: Former smoker Smokeless Tobacco Status: No Alcohol use: none Drug use: none - Family History Maternal Living Status: Medications and Allergies Atenolol [Tenormin] 100 mg PO DAILY 09/30/15 [History] Atorvastatin [Lipitor] 40 mg PO DAILY 09/30/15 [History] Clopidogrel [Plavix] 75 mg PO DAILY 09/30/15 [History] Fenofibrate,Micronized [Lofibra] 134 mg PO DAILY 09/30/15 [History] Glimepiride [Amaryl] 4 mg PO DAILY 09/30/15 [History] Insulin Glargine,Hum.rec.anlog [Lantus Solostar] 10 unit SQ HS 09/30/15 [History ] Lisinopril/Hydrochlorothiazide [Zestoretic 20-25 mg Tablet] 1 tab PO DAILY 09/29 [History] Sitagliptin Phosphate [Januvia] 50 mg PO DAILY 09/30/15 [History] Haloperidol Lactate [Haldol] 2 mg IV Q6HR PRN #5 vial 10/05/15 [Rx] Aspirin [Lo-Dose Aspirin EC] 81 mg PO DAILY 11/26/17 [History] Cholecalciferol (D-3) [Vitamin D] 1,000 unit PO DAILY 11/26/17 [History] [place]-3/Dha/Epa/Fish Oil [Fish Oil 1,000 mg Softgel] 1 cap PO DAILY 11/26/17 [ History] 3 Allergy/AdvReac Type Severity Reaction Status Date / Time No Known Allergies Allergy Verified 11/26/17 18:41 All Systems Review: The remainder of the systems were reviewed and are negative - Cardiovascular Cardiovascular: as per HPI Physical Examination Vital Signs, Last 4 Hours Temp Pulse Resp BP Pulse Ox 11/27/17 07:28 98.8 F 61 14 108/62 96 11/27/17 06:33 97 General: Conversant, No Apparent Distress HEENT: Atraumatic, Normocephaly Cardiac: Other (irregulary irregular) Lungs: Normal Breath Sounds Neuro: Alert and responsive Abdomen: Soft Skin: No rashes noted on visualized skin Musculoskeletal: No Chest Wall Tenderness Extremities: No Edema, Normal Pulses Results 11/27/17 00:38 11/27/17 00:38 Active Medications Acetaminophen (Tylenol) 650 mg PO Q6HR PRN PRN Reason: Mild Pain/Fever Stop: 05/28/18 23:48 Albuterol/Ipratropium (Duoneb) 3 ml IH [id number] PRN PRN Reason: Shortness Of Breath/Wheezing Stop: 05/28/18 23:55 Albuterol/Ipratropium (Duoneb) 3 ml IH [id number] REECE PRN Reason: Protocol Stop: 05/28/18 23:46 Last Admin: 11/27/17 04:00 Dose: 3 ml Aspirin (Aspirin Ec) 81 mg PO DAILY [facility] Stop: 05/29/18 09:01 Last Admin: 11/27/17 09:04 Dose: 81 mg Atenolol (Tenormin) 100 mg PO DAILY REECE Stop: 05/29/18 09:01 Last Admin: 11/27/17 09:04 Dose: 100 mg Atorvastatin Calcium (Lipitor) 40 mg PO DAILY REECE Stop: 05/29/18 09:01 Last Admin: 11/27/17 09:04 Dose: 40 mg Clopidogrel Bisulfate (Plavix) 75 mg PO DAILY REECE Stop: 05/29/18 09:01 Last Admin: 11/27/17 09:04 Dose: 75 mg Dextrose/Water (Dextrose 50% (Syg)) 25 ml IVP AD PRN PRN Reason: Hypoglycemia Stop: 05/28/18 23:51 Glucagon (Glucagen) 1 mg IM ONCE PRN PRN Reason: Hypoglycemia Stop: 05/28/18 23:51 Glucose (Gluctose) 15 gm PO ONCE PRN PRN Reason: Hypoglycemia Stop: 05/28/18 23:51 Glucose (Gluctose) 30 gm PO ONCE PRN PRN Reason: Hypoglycemia Stop: 05/28/18 23:51 Lisinopril/HCTZ (Prinzide 10-12.5) 2 each PO DAILY REECE Stop: 05/29/18 09:01 Last Admin: 11/27/17 09:04 Dose: 2 each Heparin Sodium (Porcine) (Heparin) 5,000 unit SQ Q12HCO REECE Stop: 05/29/18 06:01 Last Admin: 11/27/17 05:17 Dose: 5,000 unit Dextrose/Sodium Chloride (D5% And 0.45% Nacl 1000 Ml Bag) 1,000 mls @ 75 mls/ hr IVC .[id number] [facility] Stop: 05/28/18 18:31 Last Admin: 11/26/17 20:00 Dose: 75 mls/hr Dextrose (Dextrose 5%) 1,000 mls @ 100 mls/hr IVC .Q10H PRN PRN Reason: HYPOGLYCEMIA Stop: 05/28/18 23:51 Azithromycin 500 mg/ Dextrose 250 mls @ 252 mls/hr IVPB Q24H [facility] Stop: 05/29/18 23:01 Ceftriaxone Sodium 1,000 mg/ (Sterile Water) 10 mls @ 300 mls/hr IVP DAILY [facility] Stop: 05/29/18 09:01 Last Admin: 11/27/17 09:05 Dose: 300 mls/hr Insulin Human Lispro (Humalog) 0 units SQ TIDAC REECE PRN Reason: Protocol Stop: 05/29/18 07:31 Last Admin: 11/27/17 07:52 Dose: Not Given Naloxone HCl (Narcan) 0.4 mg IVP Q2MIN PRN PRN Reason: SEE COMMENTS Stop: 05/28/18 23:48 - Imaging and Cardiology Echo: pending Other Results: 12 hour tele: avg HR=66 afib. - EKG Interpretation EKG results cardiology: personally reviewed Consult Discharge Plan - Plan Referrals: Pedro Tubbs MD [Primary Care Provider] -
[2017-11-27] MEDS: Aspirin Enteric Coated 81 MG Tablet PO SCH (09:04)
[2017-11-27] MEDS: cefTRIAXone 1,000 MG in Water for inj. (sterile) 20 ML 10 ML IVP SCH (09:05)
[2017-11-27] MEDS: D5% in 0.45% NACL 1,000 ML IVC SCH ×2 (09:14→22:13)
--- NOTE | 2017-11-27 15:04 | Event Note ---
Date of Encounter: 11/27/17 Time of Encounter: 15:02 - Cardiology Event Note Discussed with Dr. Fernandez. Recommend starting coumadin and holding plavix. [facility] referral sent. Please call with questions.
[2017-11-27 15:49] LABS: INR 1.2
--- NOTE | 2017-11-27 17:39 | Internal Med Progress Note ---
Date of Encounter: 11/27/17 Time of Encounter: 11:55 - Assessment and plan (1) Diabetes mellitus Current Visit: Yes Status: Chronic Assessment and plan: Chronic. A1c is 6.1% Patient with recent episodes of hypoglycemia. Family is requesting review of diuretic medications for discharge to attempt to avoid hypoglycemic episodes at home. Continue sliding scale insulin, Accu-Cheks before meals and at bedtime, diabetic diet. Qualifiers: Diabetes mellitus type: type 2 Diabetes mellitus shelter insulin use: with buttermaker continuous churn use Diabetes mellitus complication status: with kidney complications Diabetes mellitus complication detail: with chronic kidney disease Chronic kidney disease stage: stage 4 (severe) Qualified Code(s): E11.22 - Type 2 diabetes mellitus with diabetic chronic kidney disease; N18.4 - Chronic kidney disease, stage 4 (severe); Z79.4 - [facility] (current) use of insulin (2) Hypoglycemia Current Visit: Yes Status: Acute Assessment and plan: Home medications include Januvia, lantus 10 units, and Amaryl without any changes for years. Hypoglycemia etiology unknown possibly secondary to Amaryl, pneumonia, or wrong dose of lantus at home. Review home medications prior to discharge. Plan: - Accu-Cheks before meals at bedtime - low sliding scale for correction ACHS - hypoglycemic protocol (3) CKD stage 4 due to type 2 diabetes mellitus Current Visit: Yes Status: Acute Assessment and plan: Serum creatinine 2.19, GFR 29. Creatinine appears to be at baseline. Renal function improved with IV fluids since admission. Monitor labs and avoid nephrotoxins. (4) Community acquired pneumonia Current Visit: Yes Status: Acute Assessment and plan: Small left lower lobe pleural effusion noted on cxr, hypothermia upon arrival, and wheezing on exam. No recent hospitalizations. Patient failed outpatient by mouth antibiotics for URI symptoms [place] without leukocytosis, afebrile, normotensive and no tachycardia. No signs of sirs or sepsis. Plan: - Azithromycin and Ceftriaxone (day 2) - blood cultures ordered and pending - sputum culture ordered and pending - strep and legionella negative - Duoneb Q6H scheduled, Q4H prn Qualifiers: Laterality: left Lung location: lower lobe of lung Qualified Code(s): J18.1 - Lobar pneumonia, unspecified organism (5) Seizure Current Visit: Yes Status: Acute Assessment and plan: Likely secondary to hypoglycemia. Head CT negative for acute infarct or process. Seizure precautions. (6) Afib Current Visit: Yes Status: Acute Assessment and plan: EKG showed A. fib on arrival last night. Patient has no prior history. Patient was asymptomatic during event, according to cardiology note average overnight heart rate was 66 and A. fib, no RVR. TSH is within normal limits no significant electrolyte home normalities noted. Cardiology following. Discussed patient's high risk of CVA and they recommended Coumadin, patient will consider. Per cardiology note if he agrees he will get a referral to the Coumadin clinic. Echocardiogram pending. Continue telemetry Qualifiers: Atrial fibrillation type: persistent Qualified Code(s): I48.1 - Persistent atrial fibrillation (7) DVT prophylaxis Current Visit: Yes Status: Acute Assessment and plan: Heparin - Time Spent With Patient Total time spent is greater than 50% in coordination of care (as documented) at patient's floor/unit and/or counseling patient: less than 15 minutes - Subjective Interval history: Patient was seen and assessed at bedside held 11:55 AM, daughters are at bedside. Patient appears better. He flat, but does answer questions appropriately. Family reports the patient has had recent URI symptoms and failed Ceftin ear outpatient. Patient denies headache or blurred vision, no neck pain, no sore throat or continued URI symptoms today. He denies chest pain or shortness of breath, no abdominal pain, nausea, vomiting, or diarrhea. - Constitutional Vitals: Temp Pulse Resp BP Pulse Ox 98.0 F 77 13 102/64 96 11/27/17 15:49 11/27/17 15:49 11/27/17 15:49 11/27/17 15:49 11/27/17 15:49 General appearance: Present: cooperative, A&O X 3, pleasant, no acute distress, answers questions appropriately - Head Head exam: Present: atraumatic, normal inspection, normocephalic - Eye Eye exam: Present: normal appearance, conjuntiva pink, sclera anicteric - Neck Neck exam general surgery: Present: normal inspection, supple, trachea midline. Absent: lymphadenopathy, tenderness - Respiratory Respiratory exam: Present: CTAB. Absent: accessory muscle use, rales, rhonchi, wheezes - Cardiovascular Cardiovascular exam: Present: RRR, +S1, +S2. Absent: diastolic murmur, gallop, rubs, systolic murmur - GI/Abdominal GI/Abdominal exam: Present: normal bowel sounds, soft. Absent: distended, hepatomegaly, tenderness - Extremities Exam Extremities exam: Present: normal capillary refill, normal inspection, warm, radial pulses palpable and symmetrical. Absent: calf tenderness, cyanotic, pedal edema, tenderness - Neurological Exam Neurological exam: Present: alert, oriented X3, no focal deficits. Absent: facial droop, speech deficit - Skin Skin exam: Present: dry, intact, normal color, warm. Absent: rash Internal Medicine: Result - Labs CBC & Chem 7: 11/27/17 00:38 11/27/17 00:38 - ABG Interpretation ABG results: PT/INR, D-dimer PT 13.0 Seconds (9.4-12.1) H 11/27/17 15:29 Consult Discharge Plan - Plan Referrals: Pedro Tubbs MD [Primary Care Provider] -
[2017-11-27] MEDS ORDERED: Warfarin perPT PO PRN (18:00)
[2017-11-27] MEDS ORDERED: *HR* Warfarin 2.5 MG TABLET PO ONE (18:00)
[2017-11-27] MEDS: Azithromycin 500 MG in D5% in Water 250 ML IVPB SCH (22:14)
[2017-11-28 04:21] LABS: Basophils % 0.6 %; Eosinophils % 0.2 %; Hematocrit 35.8 % (37.5-50.1); Hemoglobin 11.6 g/dL (12.9-16.9); Immature Granulocytes % 0.2 % (0-4); Lymphocytes # 1.8 K/mcL (0.6-4.6); Lymphocytes % 33.5 %; Mean Corpuscular HGB Conc 32.4 g/dL (31.6-35.5); Mean Corpuscular Hemoglobin 31.2 pg (28.0-33.3); Mean Corpuscular Volume 96.2 fL (83.0-100.0); Mean Platelet Volume 10.4 fL (9.4-12.4); Monocytes # 0.6 K/mcL (0.0-1.3); Monocytes % 10.4 %; Platelet Count 162 K/mcL (140-400); Red Blood Count 3.72 M/mcL (4.19-5.50); Red Cell Distribution Width 14.3 % (11.5-14.5); Segmented Neutrophils % 55.1 %
[2017-11-28 04:29] LABS: INR 1.2; Prothrombin Time 13.2 Seconds (9.4-12.1)
[2017-11-28 04:38] LABS: Calcium 8.7 mg/dL (8.6-10.3); Potassium 4.4 mEq/L (3.5-5.1)
[2017-11-28] MEDS: Ipratropium/Albuterol Neb 3 ML IH SCH ×4 (04:53→21:40)
[2017-11-28] MEDS: *HR* Heparin 5,000 UNIT/ML VIAL SQ SCH (05:43)
[2017-11-28] MEDS: Insulin LISPRO 300 UNITS/3 ML VIAL SQ SCH ×3 (07:46→17:25)
--- NOTE | 2017-11-28 09:35 | Electrocardiograph Report ---
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
[2017-11-28] MEDS: Aspirin Enteric Coated 81 MG Tablet PO SCH (10:49)
[2017-11-28] MEDS: cefTRIAXone 1,000 MG in Water for inj. (sterile) 20 ML 10 ML IVP SCH (10:50)
[2017-11-28] MEDS: D5% in 0.45% NACL 1,000 ML IVC SCH (14:20)
--- NOTE | 2017-11-28 17:05 | Internal Med Progress Note ---
Date of Encounter: 11/28/17 Time of Encounter: 11:55 - Assessment and plan (1) Diabetes mellitus Current Visit: Yes Status: Chronic Assessment and plan: Chronic. A1c is 6.1% Patient with recent episodes of hypoglycemia. Likely will stop Glimepiride on discharge. Continue sliding scale insulin, Accu-Cheks before meals and at bedtime, diabetic diet. Qualifiers: Diabetes mellitus type: type 2 Diabetes mellitus longterm insulin use: with longterm use Diabetes mellitus complication status: with kidney complications Diabetes mellitus complication detail: with chronic kidney disease Chronic kidney disease stage: stage 4 (severe) Qualified Code(s): E11.22 - Type 2 diabetes mellitus with diabetic chronic kidney disease; N18.4 - Chronic kidney disease, stage 4 (severe); Z79.4 - shelter (current) use of insulin (2) Hypoglycemia Current Visit: Yes Status: Acute Assessment and plan: Home medications include Januvia, lantus 10 units, and Amaryl without any changes for years. Hypoglycemia etiology unknown, possibly secondary to Amaryl, pneumonia, or wrong dose of lantus at home. Review home medications prior to discharge. Likely will stop Glimepiride at discharge. Continue accuchecks achs, diabetic diet, and SSI (3) CKD stage 4 due to type 2 diabetes mellitus Current Visit: Yes Status: Chronic Assessment and plan: Serum creatinine 2.34, GFR 26. Creatinine appears to be at baseline. Monitor labs and avoid nephrotoxins. (4) Community acquired pneumonia Current Visit: Yes Status: Acute Assessment and plan: Pt stable. CURB 65 score 2- moderate risk No recent hospitalizations. Patient failed outpatient by mouth antibiotics for URI symptoms Pt without leukocytosis, afebrile, normotensive and no tachycardia. No signs of sirs or sepsis. Legionella and strep pneumo antigens negative Blood cultures x 2 negative Continue 02 prn, titrate Duonebs q6h Continue IV zithromax and Rocephin (day 3) Qualifiers: Laterality: left Lung location: lower lobe of lung Qualified Code(s): J18.1 - Lobar pneumonia, unspecified organism (5) Seizure Current Visit: Yes Status: Resolved (6) Afib Current Visit: Yes Status: Acute Assessment and plan: Cardiology following. Monitor remains a-fib, rate controlled. Warfarin started 11/27. INR 1.2 Echocardiogram showed EF 60% with mild asymmetric hypertrophy of the basal septum, indeterminant diastolic function, moderately dilated LA Continue telemetry Continue Coumadin, cardiology to refer patient to Coumadin clinic. Qualifiers: Atrial fibrillation type: persistent Qualified Code(s): I48.1 - Persistent atrial fibrillation (7) DVT prophylaxis Current Visit: Yes Status: Acute Assessment and plan: Heparin stopped. Patient on warfarin. - Time Spent With Patient Total time spent is greater than 50% in coordination of care (as documented) at patient's floor/unit and/or counseling patient: less than 15 minutes - Subjective Interval history: Patient was seen and assessed at bedside held 11:55 AM, daughter is at bedside. Patient appears better, more alert and interactive. Patient denies headache or blurred vision, no neck pain, no sore throat or continued URI symptoms today. He denies chest pain or shortness of breath, no abdominal pain, nausea, vomiting, or diarrhea. Pt and family are agreeable to pt staying for IV antibiotics. - Constitutional Vitals: Temp Pulse Resp BP Pulse Ox 97.7 F 86 16 121/56 98 11/28/17 15:32 11/28/17 15:32 11/28/17 15:36 11/28/17 15:32 11/28/17 15:36 General appearance: Present: cooperative, A&O X 3, pleasant, no acute distress, answers questions appropriately - Head Head exam: Present: atraumatic, normal inspection, normocephalic - Eye Eye exam: Present: normal appearance, conjuntiva pink, sclera anicteric - Neck Neck exam general surgery: Present: supple, trachea midline. Absent: lymphadenopathy - Respiratory Respiratory exam: Present: CTAB. Absent: accessory muscle use, rales, rhonchi, wheezes - Cardiovascular Cardiovascular exam: Present: RRR, +S1, +S2. Absent: diastolic murmur, gallop, rubs, systolic murmur, tachycardia - GI/Abdominal GI/Abdominal exam: Present: normal bowel sounds, soft. Absent: distended, hepatomegaly, tenderness - Extremities Exam Extremities exam: Present: normal capillary refill, normal inspection, warm, radial pulses palpable and symmetrical. Absent: calf tenderness, cyanotic, pedal edema, tenderness - Neurological Exam Neurological exam: Present: alert, oriented X3, no focal deficits. Absent: altered, facial droop, speech deficit - Skin Skin exam: Present: dry, intact, normal color, warm. Absent: rash Internal Medicine: Result - Labs CBC & Chem 7: 11/28/17 04:00 11/28/17 04:00 Labs: Short CBC 11/28/17 Range/Units 04:00 WBC 5.4 (4.3-11.1) K/mcL Hgb 11.6 L (12.9-16.9) g/dL Hct 35.8 L (37.5-50.1) % Plt Count 162 (140-400) K/mcL Neutrophils # 3.0 (1.6-8.9) K/mcL BMP 11/28/17 04:00 Sodium 136 Potassium 4.4 Chloride 107 Carbon Dioxide 25 BUN 32 H Creatinine 2.34 H Glucose 122 H Calcium 8.7 - ABG Interpretation ABG results: PT/INR, D-dimer PT 13.2 Seconds (9.4-12.1) H 11/28/17 04:00 - Impressions Impressions Echocardiogram 11/27/17 23:57 Impressions: LVEF 60%. Normal LV chamber size and function. Mild asymmetric hypertrophy of the basal septum. Indeterminate diastolic function. Normal right ventricular structure and function. Moderately dilated left atrium. Mild pulmonary hypertension. No significant valvular dysfunction. Left Ventricular Wall Motion: Rest Echo Findings All wall segments showed normal motion. Findings: Study Quality * Technically adequate exam. ECG Findings * Atrial fibrillation. Left Ventricle * LVEF 60%. * Normal LV chamber size and function. * Mild asymmetric hypertrophy of the basal septum. * Indeterminate diastolic function. Right Ventricle * Normal right ventricular structure and function. Left Atrium * Moderately dilated left atrium. Right Atrium * Mildly dilated right atrium. Aortic Valve * Trileaflet aortic valve with normal function. * No aortic regurgitation. * No aortic stenosis. Mitral Valve * Mild mitral annular calcification * Trace mitral regurgitation. * No mitral stenosis. Tricuspid Valve * Normal tricuspid valve structure and function. * Trace tricuspid regurgitation. * Mild pulmonary hypertension. Pulmonic Valve * Pulmonic valve is not well visualized. * No pulmonic regurgitation. Aorta * Normally sized aortic root. Pericardium * The pericardium appears normal. IVC * Normal IVC dimensions and inspiratory collapse. Pulmonary Artery * Normal visualized portions of the main pulmonary artery. Consult Discharge Plan - Plan Referrals: Pedro Tubbs MD [Primary Care Provider] - 12/03/17 8:20 am
[2017-11-28] MEDS ORDERED: *HR* Warfarin 2.5 MG TABLET PO ONE (18:00)
[2017-11-28] MEDS: Azithromycin 500 MG in D5% in Water 250 ML IVPB SCH (23:04)
[2017-11-29] MEDS: Ipratropium/Albuterol Neb 3 ML IH SCH ×2 (03:52→09:28)
[2017-11-29] MEDS: D5% in 0.45% NACL 1,000 ML IVC SCH (04:01)
[2017-11-29 04:44] LABS: Basophils % 0.6 %; Eosinophils % 0.2 %; Hematocrit 35.3 % (37.5-50.1); Hemoglobin 11.5 g/dL (12.9-16.9); Immature Granulocytes % 0.2 % (0-4); Lymphocytes # 1.6 K/mcL (0.6-4.6); Lymphocytes % 30.6 %; Mean Corpuscular HGB Conc 32.6 g/dL (31.6-35.5); Mean Corpuscular Hemoglobin 31.1 pg (28.0-33.3); Mean Corpuscular Volume 95.4 fL (83.0-100.0); Mean Platelet Volume 10.3 fL (9.4-12.4); Monocytes # 0.5 K/mcL (0.0-1.3); Monocytes % 9.3 %; Platelet Count 162 K/mcL (140-400); Red Cell Distribution Width 14.5 % (11.5-14.5); Segmented Neutrophils % 59.1 %
[2017-11-29 04:58] LABS: Calcium 8.5 mg/dL (8.6-10.3); INR 1.2; Prothrombin Time 13.1 Seconds (9.4-12.1)
[2017-11-29] MEDS: Insulin LISPRO 300 UNITS/3 ML VIAL SQ SCH (07:40)
[2017-11-29 08:24] VITALS: BP 125/72
[2017-11-29] MEDS: Aspirin Enteric Coated 81 MG Tablet PO SCH (10:08)
[2017-11-29] MEDS: cefTRIAXone 1,000 MG in Water for inj. (sterile) 20 ML 10 ML IVP SCH (10:09)
--- NOTE | 2017-11-29 10:31 | Discharge Summary ---
- NOTES TO OUTPATIENT PROVIDER Notes to Outpatient Provider: Pt was admitted for hypoglycemia, CAP, and new onset a-fib. I have stopped the Amaryl, A1c is 6.1%. Pt has been started on Warfarin 2.5mg daily and cardiology is setting him up with the Coumadin clinic. He also was sent home with Levaquin 500mg po q48h for renal dosing. Orders not resulted at time of discharge: Pending orders Date of Encounter: 11/29/17 Time of Encounter: 10:15 - Discharge Diagnosis (1) Diabetes mellitus Priority: Secondary Status: Chronic Assessment and Plan: A1c 6.1%. I have stopped his Glimepiride per family request. Pt will need continued medication monitoring and possible adjustments and I have encouraged him to check his blood glucose frequently and follow up with PCP. Continue other home medications. 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 (2) Hypoglycemia Priority: Secondary Status: Acute (3) CKD stage 4 due to type 2 diabetes mellitus Priority: Secondary Status: Chronic (4) Community acquired pneumonia Priority: Primary Status: Acute Qualifiers: Laterality: left Lung location: lower lobe of lung Qualified Code(s): J18.1 - Lobar pneumonia, unspecified organism (5) Seizure Priority: Secondary Status: Resolved (6) Afib Priority: Secondary Status: Acute Qualifiers: Atrial fibrillation type: persistent Qualified Code(s): I48.1 - Persistent atrial fibrillation (7) DVT prophylaxis Priority: Secondary Status: Acute Hospital course: Mr. Arredondo is a 86 year old male with past medical history of diabetes, hypertension, coronary artery disease, stage III chronic kidney disease. Patient was admitted to the hospital from home after episode of hypoglycemia and witnessed seizure by family. Patient's A1c is 6.1%. Amaryl has been stopped. I have encouraged the patient to frequently check his blood sugar home and follow-up with primary care for further medication changes. Patient was also found to have community-acquired pneumonia. He failed outpatient therapy for URI symptoms previously. He was treated with IV Zithromax and IV Rocephin, curb 65 score of 2 for moderate risk, patient was here for 3 days. He was sent home on Levaquin 500 mg by mouth every other day based on renal function. Renal function appears to be at baseline currently, stage III. On admission to the emergency department, patient was found to have A. fib. He was seen by cardiology and placed on Warfarin 2.5mg po daily and will follow up with the Coumadin Clinic. Pt is stable, physical exam is unremarkable. Labs and vitals are stable and WNL. He is appropriate and ready for discharge. Discharge discussed with: patient, family - Time Spent with Patient Total time spent providing and/or coordinating discharge services: Less than 30 minutes - Discharge Medications Prescriptions: levoFLOXacin [Levaquin] 500 mg PO Q48H #4 tablet Warfarin [Coumadin] 2.5 mg PO 1800 #5 tablet Home Medications: Atenolol [Tenormin] 100 mg PO DAILY 09/30/15 [History] Atorvastatin [Lipitor] 40 mg PO DAILY 09/30/15 [History] Fenofibrate,Micronized [Lofibra] 134 mg PO DAILY 09/30/15 [History] Insulin Glargine,Hum.rec.anlog [Lantus Solostar] 10 unit SQ HS 09/30/15 [History ] Lisinopril/Hydrochlorothiazide [Zestoretic 20-25 mg Tablet] 1 tab PO DAILY 09/29 [History] Sitagliptin Phosphate [Januvia] 50 mg PO DAILY 09/30/15 [History] Haloperidol Lactate [Haldol] 2 mg IV Q6HR PRN #5 vial 10/05/15 [Rx] Aspirin [Lo-Dose Aspirin EC] 81 mg PO DAILY 11/26/17 [History] Cholecalciferol (D-3) [Vitamin D] 1,000 unit PO DAILY 11/26/17 [History] [place]-3/Dha/Epa/Fish Oil [Fish Oil 1,000 mg Softgel] 1 cap PO DAILY 11/26/17 [ History] Warfarin [Coumadin] 2.5 mg PO 1800 #5 tablet 11/29/17 [Rx] levoFLOXacin [Levaquin] 500 mg PO Q48H #4 tablet 11/29/17 [Rx] Allergies/Adverse Reactions: 3 Allergy/AdvReac Type Severity Reaction Status Date / Time No Known Allergies Allergy Verified 11/26/17 18:41 Date of admission: 11/27/17 04:00 Primary care physician: Pedro Tubbs MD Consults: 11/27/17 08:54 Consult to Nurse Navigator [CONS] Routine Comment: PNEUMONIA Discharging clinician: Ny Ball Anticipated date of discharge: 11/29/17 - Constitutional Vitals: Temp Pulse Resp BP Pulse Ox 97.9 F 60 16 125/72 98 11/29/17 08:23 11/29/17 08:23 11/29/17 09:28 11/29/17 08:23 11/29/17 09:28 General appearance: Present: cooperative, A&O X 3, pleasant, no acute distress, answers questions appropriately - Head Head exam: Present: atraumatic, normal inspection, normocephalic - Eye Eye exam: Present: normal appearance, conjuntiva pink, sclera anicteric - Neck Neck exam general surgery: Present: supple, trachea midline. Absent: lymphadenopathy, tenderness - Respiratory Respiratory exam: Present: CTAB. Absent: accessory muscle use, chest wall tenderness, rales, respiratory distress, rhonchi, wheezes - Cardiovascular Cardiovascular exam: Present: RRR, +S1, +S2. Absent: diastolic murmur, gallop, rubs, systolic murmur - GI/Abdominal GI/Abdominal exam: Present: normal bowel sounds, soft. Absent: distended, hepatomegaly, tenderness - Extremities Exam Extremities exam: Present: normal capillary refill, normal inspection, warm, radial pulses palpable and symmetrical. Absent: calf tenderness, cyanotic, pedal edema, tenderness - Neurological Exam Neurological exam: Present: alert, oriented X3, no focal deficits, pronater drift. Absent: altered, facial droop, speech deficit - Skin Skin exam: Present: dry, intact, normal color, warm. Absent: rash - Patient Status Disposition: Home, Self-Care Condition: Good Functional capacity at discharge: independent ambulation Overall status at discharge: patient is back to baseline - Discharge Instructions Follow Up With: Pedro Tubbs MD [Primary Care Provider] - 12/03/17 8:20 am Forms: ED Satisfaction Letter, Work/School Release Additional Instructions: Please follow-up with your primary care provider in the next 5-7 days for a recheck. Please follow-up with the Coumadin clinic as scheduled. Your new medications have been called into your pharmacy, please start them today. Return to your normal diet and activities as tolerated. Resume your normal medications, stop taking glimepiride and check her blood sugar frequently. He may need to have further medication adjustments with your primary care. Watch for any signs of blood in your urine or stool, if you do notice blood in your urine or stool return to the emergency department immediately. Return to the emergency department for any other problems or concerns, or if your symptoms return or worsen. - Diet and Activity Activity: increase activity as tolerated Diet: diabetic diet
== END 2017-11-29 12:04 | disposition home or self-care (01) | DRG 194 ==
LOC: EMEROO 18:06 → 3BNU 18:06 → SUATTDRO 11-27 04:00
PROVIDERS: ADMIT Internal Medicine; ATTEND Registered Nurse

== ENCOUNTER 2019-01-06 07:32 | Observation (INO) ==
--- NOTE | 2019-01-06 07:45 | Emergency Department Note ---
Disposition Clinical Impression: Elevated CK Lower extremity weakness Qualifiers: Laterality: bilateral Qualified Code(s): R29.898 - Other symptoms and signs involving the musculoskeletal system Fall Qualifiers: Encounter type: initial encounter Qualified Code(s): W19.XXXA - Unspecified fal l, initial encounter Disposition: Admitted As Inpatient Condition: Fair Referrals: Pedro Tubbs MD [Primary Care Provider] - Time of Disposition: 10:50 General Adult HPI - General Chief complaint: ED Fall Stated complaint: fall with injury Time Seen by Provider: 01/06/19 07:41 Source: patient, family, EMS Mode of arrival: EMS Limitations: physical limitation Nursing Notes Reviewed: Yes Vital Signs Reviewed: Yes - History of Present Illness HPI Narrative: Mr. Arredondo is an 88-year-old male who presents today via EMS with a chief complaint of falling last night. He states that he was walking and suddenly be came very weak in both of his legs and felt like he was unable to continue any longer, he denies tripping over anything/mechanical falls or having any preceding palpitations or lightheadedness or dizziness. He was laying down on the ground all night from about 7:30 PM until they found him today. He denies any pain in his head, neck. She does state that he has bilateral leg pain including weakness, this is not very severe per his report and is about a 3 out of 10. It is more of a weakness on a pain and is a constant weakness. He did report scraping his right elbow, but denies any pain associated with the elbow. He has had no loss of function of his upper or lower extremity, he denies any focal weakness. He continues to experience bilateral leg weakness, has some pain bilaterally in both of his lower extremities. He does deny any bowel or bladder incontinence, saddle anesthesia. He denies any chest pain, shortness of breath, abdominal pain, nausea or vomiting. Pt Subjective Complaint: i fell - Related Data Home Medications Medication Instructions Recorded Confirmed Atenolol [Tenormin] 100 mg PO DAILY 09/30/15 11/26/17 Atorvastatin [Lipitor] 40 mg PO DAILY 09/30/15 11/26/17 Fenofibrate,Micronized [Lofibra] 134 mg PO DAILY 09/30/15 11/26/17 Insulin Glargine,Hum.rec.anlog 10 unit SQ HS 09/30/15 11/26/17 [Lantus Solostar] Lisinopril/Hydrochlorothiazide 1 tab PO DAILY 09/30/15 11/26/17 [Zestoretic 20-25 mg Tablet] Sitagliptin Phosphate [Januvia] 50 mg PO DAILY 09/30/15 11/26/17 Aspirin [Lo-Dose Aspirin EC] 81 mg PO DAILY 11/26/17 11/26/17 Cholecalciferol (D-3) [Vitamin D] 1,000 unit PO DAILY 11/26/17 11/26/17 [place]-3/Dha/Epa/Fish Oil [Fish Oil 1 cap PO DAILY 11/26/17 11/26/17 1,000 mg Softgel] Previous Rx's Medication Instructions Recorded Haloperidol Lactate [Haldol] 2 mg IV Q6HR PRN #5 vial 10/05/15 Warfarin [Coumadin] 2.5 mg PO 1800 #5 tablet 11/29/17 levoFLOXacin [Levaquin] 500 mg PO Q48H #4 tablet 11/29/17 Allergies Allergy/AdvReac Type Severity Reaction Status Date / Time No Known Allergies Allergy Verified 11/26/17 18:41 Review of Systems: Constitutional: denies fever, chills, weight changes HEENT: denies blurry vision, tinnitus, sore throat Cardio: denies chest pain, palpiltations Lungs: denies SOB, wheeze, cough, hemoptysis GI: denies N/V/D, denies abdominal pain : denies dysuria, hematuria MSK: has been having weakness in his legs since last night, right arm got scraped Heme: denies easy bruising Neuro: deneis numbness or tingling, denies dizziness Skin: admits to open wounds right forearm Psych: denies anxiety, depression Endocrine: denies polyuria, polydipsia, heat intolerance or cold intolerance Allergy: denies seasonal allergies or food allergies All systems ED: reviewed and negative except as stated. Review of Systems: As Per HPI Past Medical History - Past Medical History Attestation: Yes The following information was validated with the patient. Medical history: Reports: coronary artery disease, CVA, diabetes, hyperlipidemia, hypertension, myocardial infarction (with stent placement years ago ), RA Surgical history: Reports: angioplasty/stent Psychiatric history: Reports: no psych history - Social History Smoking Status: Former smoker Smokeless Tobacco Status: No Alcohol use: Reports: none Drug use: Reports: none Physical Exam Vital signs noted, please see nurses notes. General: Well-developed, well-nourished patient lying in bed who appears non- toxic, no apparent distress Head: Atraumatic, normocephalic. No beach sign. No periorbital bruising; no fluid in the ears, coming out of the eyes. Eyes: Sclera anicteric. ENT: Mucous membranes moist. Heart: Irregularly irregular. S1S2 CTA Neck: no JVD Lungs: Normal respiratory pattern without distress, lungs clear to auscultation b/l. No wheeze, rhonchi, rales or stridor Abdomen: Soft, non-tender, non-distended, no guarding or peritoneal signs. No bruising noted to the abdomen. Neurologic: Awake and alert with normal speech and mental status. Pupils are equal. Moves all extremities equally well. No focal deficits or lateralizing signs. Follows command. Cranial nerves II through XII grossly intact. Strength is intact bilaterally upper and lower extremities. Some tenderness to palpation of the bilateral extremities in the hip area. Pulses intact upper and lower extremities. Able to lift legs off the bed. Psychiatric: Mood and affect appropriate. Musculoskeletal: No peripheral edema. No asymmetrical swelling, no calf tenderness - General Limitations: no limitations General appearance: alert, in no apparent distress Course Course Narrative: Patient presenting after a fall with EMS. We will obtain a CT of the head due to his being on anticoagulation, he does not know which anticoagulation he is on but his family member is bringing in his current medications. We will also obtain a CT of his cervical spine, although he denies any head or neck pain he is a poor historian and is unsure of the events that led up to his fall completely. Hip x-rays bilaterally are pending. We will rule out ACS, EKG and troponin have both been ordered. As the patient was playing outside in the grass all night, we will order a creatine kinase to rule out rhabdomyolysis. Disposition pending. - Reevaluation(s) Reevaluation #1: Pt reports not being up-to-date on his Td Vaccination, has not had this since 1998. He is resting comfortably in bed and family is by bedside, they are all updated on current labs. Time: 10:06 Reevaluation #2: Nursing reports that they will wrap the area wound on the right arm after irrigating it. Time: 10:07 - Consultations Consultation #1: hospitalist accepted pt, family aware Time: 10:50 Vital Signs Temperature 97.6 F 01/06/19 07:37 Pulse Rate 61 01/06/19 07:37 Respiratory Rate 16 01/06/19 07:37 Blood Pressure 150/98 01/06/19 07:37 O2 Sat by Pulse Oximetry 100 01/06/19 07:37 Temperature 97.6 F 01/06/19 07:37 Pulse Rate 61 01/06/19 07:37 Respiratory Rate 16 01/06/19 07:37 Blood Pressure 150/98 01/06/19 07:37 O2 Sat by Pulse Oximetry 100 01/06/19 07:37 Oxygen Delivery Oxygen Delivery Room Air Medical Decision Making - MDM Narrative Medical decision making narrative: Labs did not show any electrolyte abnormality. INR was subtherapeutic however the patient was already aware of this and was informed that his INR was subtherapeutic at Coumadin clinic yesterday. Radiology returned without any acute fracture or abnormality intracranially or in the C-spine. He did have microscopic ischemic changes noted on CT scan of the head. Patient's labs labs returned with a increase in creatinine kinase, he will be started on 125 mL an hour of fluid. Although the patient did not have any abnormality noted on imaging, the patient will be admitted for further workup of leg weakness of unknown origin. He received a tetanus booster before being transferred up to the floor as he has not had a booster shot since 1998. Family is aware of plan and has no further questions. Hospitalist did accept the patient for admission and he will be transferred up to the floor for further workup and evaluation. - Medical Records Medical records reviewed: Yes I reviewed the patient's medical records. - Lab Data Lab results reviewed: Yes I reviewed the patient's lab results. Result diagrams: 01/06/19 10:10 01/06/19 08:46 Lab Results 01/06/19 01/06/19 01/06/19 Range/Units 08:46 08:46 08:46 WBC (4.3-11.1) K/mcL RBC (4.19-5.50) M/mcL Hgb (12.9-16.9) g/dL Hct (37.5-50.1) % MCV (83.0-100.0) fL MCH (28.0-33.3) pg MCHC (31.6-35.5) g/dL RDW (11.5-14.5) % Plt Count (140-400) K/mcL MPV (9.4-12.4) fL Immature Gran % (0-4) % Seg Neutrophils % % Lymphocytes % % Monocytes % % Eosinophils % % Basophils % % Neutrophils # (1.6-8.9) K/mcL Lymphocytes # (0.6-4.6) K/mcL Monocytes # (0.0-1.3) K/mcL Eosinophils # (0.0-0.6) K/mcL Basophils # (0.0-0.2) K/mcL PT 18.6 H (9.4-12.1) Seconds INR 1.6 Sodium 136 (136-145) mEq/L Potassium 4.8 (3.5-5.1) mEq/L Chloride 99 (98-107) mEq/L Carbon Dioxide 28 (23-29) mEq/L BUN 53 H (8-23) mg/dL Creatinine 2.97 H (0.70-1.30) mg/dL Est GFR ( Amer) 24 L (> 60) Est GFR (Non-Af Amer) 20 L (> 60) BUN/Creatinine Ratio 18 (6-26) Glucose 141 H (70-105) mg/dL Calculated Osmolality 299 (280-300) Calcium 9.1 (8.6-10.3) mg/dL Creatine Kinase 239 H (30-223) Units/L Troponin I 0.03 TNP (< 0.04) ng/mL Urine Color (Yellow) Urine Clarity (Clear) Urine pH (5.0-8.0) pH Units Ur Specific [place] (1.010-1.025) Urine Protein (Neg-Trace) mg/dL Urine Glucose (UA) (Normal) mg/dL Urine Ketones (Negative) mg/dL Urine Blood (Negative) Urine Nitrite (Negative) Urine Bilirubin (Negative) Urine Urobilinogen (Normal) mg/dL Ur Leukocyte Esterase (Negative) Urine Microscopic RBC (0-3) per hpf Urine Microscopic WBC (0-3) per hpf Ur Squamous Epith Cells (None-Few) per lpf Urine Bacteria (None-Few) per hpf Hyaline Casts (None-Few) per lpf Ur Culture Indicated? (NO) 01/06/19 01/06/19 Range/Units 09:45 10:10 WBC 7.5 (4.3-11.1) K/mcL RBC 3.74 L (4.19-5.50) M/mcL Hgb 11.9 L (12.9-16.9) g/dL Hct 36.6 L (37.5-50.1) % MCV 97.9 (83.0-100.0) fL MCH 31.8 (28.0-33.3) pg MCHC 32.5 (31.6-35.5) g/dL RDW 14.3 (11.5-14.5) % Plt Count 143 (140-400) K/mcL MPV 10.3 (9.4-12.4) fL Immature Gran % 0.1 (0-4) % Seg Neutrophils % 71.1 % Lymphocytes % 19.7 % Monocytes % 8.7 % Eosinophils % 0.0 % Basophils % 0.4 % Neutrophils # 5.3 (1.6-8.9) K/mcL Lymphocytes # 1.5 (0.6-4.6) K/mcL Monocytes # 0.7 (0.0-1.3) K/mcL Eosinophils # 0.0 (0.0-0.6) K/mcL Basophils # 0.0 (0.0-0.2) K/mcL PT (9.4-12.1) Seconds INR Sodium (136-145) mEq/L Potassium (3.5-5.1) mEq/L Chloride (98-107) mEq/L Carbon Dioxide (23-29) mEq/L BUN (8-23) mg/dL Creatinine (0.70-1.30) mg/dL Est GFR ( Amer) (> 60) Est GFR (Non-Af Amer) (> 60) BUN/Creatinine Ratio (6-26) Glucose (70-105) mg/dL Calculated Osmolality (280-300) Calcium (8.6-10.3) mg/dL Creatine Kinase (30-223) Units/L Troponin I (< 0.04) ng/mL Urine Color Yellow (Yellow) Urine Clarity Clear (Clear) Urine pH 6.5 (5.0-8.0) pH Units Ur Specific [place] 1.015 (1.010-1.025) Urine Protein 30 H (Neg-Trace) mg/dL Urine Glucose (UA) Normal (Normal) mg/dL Urine Ketones Negative (Negative) mg/dL Urine Blood Small H (Negative) Urine Nitrite Negative (Negative) Urine Bilirubin Negative (Negative) Urine Urobilinogen Normal (Normal) mg/dL Ur Leukocyte Esterase Negative (Negative) Urine Microscopic RBC 0-3 (0-3) per hpf Urine Microscopic WBC 0-3 (0-3) per hpf Ur Squamous Epith Cells Moderate H (None-Few) per lpf Urine Bacteria None Seen (None-Few) per hpf Hyaline Casts None Seen (None-Few) per lpf Ur Culture Indicated? NO (NO) - Radiology Data Radiology results reviewed: Yes I reviewed the patient's radiology results. Cervical Spine CT 01/06/19 07:51 IMPRESSION: No acute intracranial abnormality. Chronic microvascular ischemic changes. No cervical spine fracture or dislocation. Multilevel degenerative changes. D/ / Randy Ceballos / Randy Ceballos Interpreting Provider: Randy Ceballos Head CT 01/06/19 07:51 IMPRESSION: No acute intracranial abnormality. Chronic microvascular ischemic changes. No cervical spine fracture or dislocation. Multilevel degenerative changes. D/ / Randy Ceballos / Randy Ceballos Interpreting Provider: Randy Ceballos Chest X-Ray 01/06/19 07:53 IMPRESSION: No evidence of acute process. D/ / Randy Ceballos / Randy Ceballos Interpreting Provider: Randy Ceballos Hip/Pelvis X-Ray 01/06/19 07:53 IMPRESSION: Normal bilateral hip alignment with no acute fracture. D/ / 01/06/2019 08:46:48 Wilner Theodore MD / june Interpreting Provider: Wilner Theodore MD Elbow X-Ray 01/06/19 08:10 IMPRESSION: 1. No acute radiographic finding to account for patient's right arm or elbow pain. 2. Osteopenia. D/ / Patrick Huff MD / Patrick Huff MD Interpreting Provider: Patrick Huff MD Humerus X-Ray 01/06/19 08:10 IMPRESSION: 1. No acute radiographic finding to account for patient's right arm or elbow pain. 2. Osteopenia. D/ / Patrick Huff MD / Patrick Huff MD Interpreting Provider: Patrick Huff MD - EKG Data EKG #1 EKG attestation: Yes I reviewed and interpreted this EKG. EKG results narrative: Atrial fibrillation, heart rate of 63 QTC of 452 ms. There do not appear to be any acute changes from previous EKG and there are no ST deviations from baseline
[2019-01-06] MEDS ORDERED: *HR* FentaNYL (PF) 100 MCG/2 ML VIAL IVP ONE (08:17)
[2019-01-06 09:20] LABS: Calcium 9.1 mg/dL (8.6-10.3); Potassium 4.8 mEq/L (3.5-5.1)
[2019-01-06 09:21] LABS: INR 1.6; Prothrombin Time 18.6 Seconds (9.4-12.1)
[2019-01-06 09:58] LABS: Bilirubin,Urine Negative (Negative); Blood,Urine Small (Negative); Clarity,Urine Clear (Clear); Color,Urine Yellow (Yellow); Glucose,Urine (UA) Normal (Normal); Ketones,Urine Negative (Negative); Leukocyte Esterase,Urine Negative (Negative); Nitrite,Urine Negative (Negative); PH,Urine 6.5 pH Units (5.0-8.0); Protein,Urine 30 mg/dL (Neg-Trace); Specific Gravity,Urine 1.015 (1.010-1.025); Urobilinogen,Urine Normal (Normal)
[2019-01-06 09:59] LABS: Bacteria,Urine None Seen per hpf (None-Few); Hyaline Casts,Urine None Seen per lpf (None-Few); RBC,Urine 0-3 per hpf (0-3); Squamous Epithelial Cell,Urine Moderate per lpf (None-Few); WBC,Urine 0-3 per hpf (0-3)
--- NOTE | 2019-01-06 10:03 | Emergency Department Note ---
Disposition Clinical Impression: Lower extremity weakness Qualifiers: Laterality: bilateral Qualified Code(s): R29.898 - Other symptoms and signs involving the musculoskeletal system Disposition: Admitted As Inpatient Forms: ED Satisfaction Letter Time of Disposition: 10:02 General Adult HPI - General Chief complaint: ED Fall Stated complaint: fall with injury Time Seen by Provider: 01/06/19 07:41 Source: patient, family, EMS Mode of arrival: EMS Limitations: no limitations Nursing Notes Reviewed: Yes Vital Signs Reviewed: Yes - History of Present Illness HPI Narrative: Attestation note: Patient was seen with the emergency medicine resident/nurse practitioner/physician oceanographer assistant/transitional resident/medical student: Dr. Rudy Mark. This includes well any procedures performed for this significant portion thereof which are to include EKG and bedside ultrasound I have personally performed a face to face evaluation on this patient. I have reviewed and agree with history and physical examination patient management and disposition. Briefly the salient points of the case are as follows: -year-old male legs gave out was taken walked about 8:00 last night sternal on for about 12 hours found by neighbors EMS was called still feels weak did not strike his head he knew he was going down just felt weakness or palpitations or loss of consciousness he has symmetrical weakness and some dyskinesias however his pulses are intact no chest pain EKG shows no acute ischemic changes labs are essentially normal limits aside from worsening of his renal insufficiency which is chronic. Head CT is otherwise negative. Patient is on Coumadin. He is also subtherapeutic at 1.6. Patient will be admitted for leg weakness and inability to ambulate properly. Admission disposition pending. Pain Scale: 0 - Related Data Home Medications Medication Instructions Recorded Confirmed Atenolol [Tenormin] 100 mg PO DAILY 09/30/15 11/26/17 Atorvastatin [Lipitor] 40 mg PO DAILY 09/30/15 11/26/17 Fenofibrate,Micronized [Lofibra] 134 mg PO DAILY 09/30/15 11/26/17 Insulin Glargine,Hum.rec.anlog 10 unit SQ HS 09/30/15 11/26/17 [Lantus Solostar] Lisinopril/Hydrochlorothiazide 1 tab PO DAILY 09/30/15 11/26/17 [Zestoretic 20-25 mg Tablet] Sitagliptin Phosphate [Januvia] 50 mg PO DAILY 09/30/15 11/26/17 Aspirin [Lo-Dose Aspirin EC] 81 mg PO DAILY 11/26/17 11/26/17 Cholecalciferol (D-3) [Vitamin D] 1,000 unit PO DAILY 11/26/17 11/26/17 [place]-3/Dha/Epa/Fish Oil [Fish Oil 1 cap PO DAILY 11/26/17 11/26/17 1,000 mg Softgel] Previous Rx's Medication Instructions Recorded Haloperidol Lactate [Haldol] 2 mg IV Q6HR PRN #5 vial 10/05/15 Warfarin [Coumadin] 2.5 mg PO 1800 #5 tablet 11/29/17 levoFLOXacin [Levaquin] 500 mg PO Q48H #4 tablet 11/29/17 Allergies Allergy/AdvReac Type Severity Reaction Status Date / Time No Known Allergies Allergy Verified 11/26/17 18:41 Past Medical History - Past Medical History Medical history: Reports: coronary artery disease, CVA, diabetes, h yperlipidemia, hypertension, myocardial infarction, RA Surgical history: Reports: angioplasty/stent Psychiatric history: Reports: no psych history - Social History Smoking Status: Former smoker Smokeless Tobacco Status: No Alcohol use: Reports: none Drug use: Reports: none Physical Exam - General Limitations: no limitations General appearance: alert, in no apparent distress Course Vital Signs Temperature 97.6 F 01/06/19 07:37 Pulse Rate 61 01/06/19 07:37 Respiratory Rate 16 01/06/19 07:37 Blood Pressure 150/98 01/06/19 07:37 O2 Sat by Pulse Oximetry 100 01/06/19 07:37 Temperature 97.6 F 01/06/19 07:37 Pulse Rate 61 01/06/19 07:37 Respiratory Rate 16 01/06/19 07:37 Blood Pressure 150/98 01/06/19 07:37 O2 Sat by Pulse Oximetry 100 01/06/19 07:37 Oxygen Delivery Oxygen Delivery Room Air Medical Decision Making - Lab Data Result diagrams: 01/06/19 08:46 Lab Results 01/06/19 01/06/19 01/06/19 Range/Units 08:46 08:46 08:46 PT 18.6 H (9.4-12.1) Seconds INR 1.6 Sodium 136 (136-145) mEq/L Potassium 4.8 (3.5-5.1) mEq/L Chloride 99 (98-107) mEq/L Carbon Dioxide 28 (23-29) mEq/L BUN 53 H (8-23) mg/dL Creatinine 2.97 H (0.70-1.30) mg/dL Est GFR ( Amer) 24 L (> 60) Est GFR (Non-Af Amer) 20 L (> 60) BUN/Creatinine Ratio 18 (6-26) Glucose 141 H (70-105) mg/dL Calculated Osmolality 299 (280-300) Calcium 9.1 (8.6-10.3) mg/dL Creatine Kinase 239 H (30-223) Units/L Troponin I 0.03 (< 0.04) ng/mL
[2019-01-06 10:24] LABS: Basophils % 0.4 %; Hematocrit 36.6 % (37.5-50.1); Hemoglobin 11.9 g/dL (12.9-16.9); Immature Granulocytes % 0.1 % (0-4); Lymphocytes # 1.5 K/mcL (0.6-4.6); Lymphocytes % 19.7 %; Mean Corpuscular HGB Conc 32.5 g/dL (31.6-35.5); Mean Corpuscular Hemoglobin 31.8 pg (28.0-33.3); Mean Corpuscular Volume 97.9 fL (83.0-100.0); Mean Platelet Volume 10.3 fL (9.4-12.4); Monocytes # 0.7 K/mcL (0.0-1.3); Monocytes % 8.7 %; Neutrophils # 5.3 K/mcL (1.6-8.9); Platelet Count 143 K/mcL (140-400); Red Blood Count 3.74 M/mcL (4.19-5.50); Red Cell Distribution Width 14.3 % (11.5-14.5); Segmented Neutrophils % 71.1 %; White Blood Count 7.5 K/mcL (4.3-11.1)
[2019-01-06 10:27] LABS: Troponin I 0.03 ng/mL (< 0.04)
[2019-01-06] MEDS ORDERED: Tdap (Boostrix) Vaccine 0.5 ML SYRINGE IM ONE (10:48)
[2019-01-06] MEDS: 0.9 % Sodium Chloride 1,000 ML IVC SCH (11:06)
[2019-01-06] MEDS ORDERED: Naloxone 0.4 MG/ML INJ IVP PRN (11:42)
--- NOTE | 2019-01-06 11:42 | Internal Med History&Physical ---
Date of Encounter: 01/06/19 Time of Encounter: 12:19 Internal Medicine - H&P: HPI History of present illness: Mr. Arredondo is a 88 year old male with history of CAD, CVA, DM, currently on coumadin presents after weakness of lower extremities and fall. Patient was walking to driveway last night and felt weakness of both legs equally. He fell, denies hitting his head, denies syncopal episodes. He was down since evening and neighbor noticed him this morning. Patient denies fevers/chills, headache, change in vision, chest pain, SOB, palpitations. In ED patient seen to have borderline elevated CK at 239, EKG showed no acute changes. Creatinine is slightly above baseline at 2.9. CT done with no acute findings. INR subtherapeutic at 1.6. He was given normal saline. No acute distress. Past Med Surg Social Fam HX - Past Medical History Medical history: coronary artery disease, CVA, diabetes, hyperlipidemia, hypert ension, myocardial infarction, RA Psychiatric history: no psych history - Past Surgical History Surgical History: angioplasty/stent Additional surgical history: Heart stent x1 - Social History Smoking Status: Former smoker Smokeless Tobacco Status: No Alcohol use: none Drug use: none - Family History Maternal Living Status: Internal Medicine - H&P: Meds Atenolol [Tenormin] 100 mg PO DAILY 09/30/15 [History] Atorvastatin [Lipitor] 40 mg PO DAILY 09/30/15 [History] Fenofibrate,Micronized [Lofibra] 134 mg PO DAILY 09/30/15 [History] Insulin Glargine,Hum.rec.anlog [Lantus Solostar] 10 unit SQ HS 09/30/15 [History] Lisinopril/Hydrochlorothiazide [Zestoretic 20-25 mg Tablet] 1 tab PO DAILY 09/30/15 [History] Sitagliptin Phosphate [Januvia] 50 mg PO DAILY 09/30/15 [History] Haloperidol Lactate [Haldol] 2 mg IV Q6HR PRN #5 vial 10/05/15 [Rx] Aspirin [Lo-Dose Aspirin EC] 81 mg PO DAILY 11/26/17 [History] Cholecalciferol (D-3) [Vitamin D] 1,000 unit PO DAILY 11/26/17 [History] [place]-3/Dha/Epa/Fish Oil [Fish Oil 1,000 mg Softgel] 1 cap PO DAILY 11/26/17 [History] Warfarin [Coumadin] 2.5 mg PO 1800 #5 tablet 11/29/17 [Rx] levoFLOXacin [Levaquin] 500 mg PO Q48H #4 tablet 11/29/17 [Rx] Allergy/AdvReac Type Severity Reaction Status Date / Time No Known Allergies Allergy Verified 11/26/17 18:41 All Systems PM: A 10-system review of systems was performed and is negative for pertinent findings except as documented above in the HPI. - Constitutional Constitutional: weakness, no chills, no fever(s), no night sweats - EENT Eyes: no change in vision, no discharge, no pain, no photophobia Ears: no ear discharge, no ear pain, no tinnitus Additional comments: chronic hearing loss Nose, mouth and throat: no dysphagia, no nasal discharge, no neck pain, no sore throat - Cardiovascular Cardiovascular ROS IM: no chest pain, no diaphoresis, no dyspnea, no lightheadedness, no palpitations, no syncope - Respiratory Respiratory: no cough, no dyspnea, no wheezing, no excessive phlegm production - Gastrointestinal Gastrointestinal: no abdominal pain, no diarrhea, no hematemesis, no hematochezia, no melena, no nausea, no vomiting - Musculoskeletal Musculoskeletal ROS IM: no numbness, no tingling - Integumentary Integumentary IM: no rash, no unusual bruising - Neurological Neurological ROS: no confusion, no convulsions, no focal weakness, no numbness, no tingling, no tremor(s) - Hematologic/Lymphatic Hematologic/Lymphatic: no easy bruising - Constitutional Vitals: Temp Pulse Resp BP Pulse Ox 97.6 F 61 16 114/53 100 01/06/19 07:37 01/06/19 07:37 01/06/19 11:12 01/06/19 11:12 01/06/19 07:37 General appearance: Present: A&O X 3 Exam: pleasant - Head Head exam: Present: atraumatic, normocephalic - Eye Eye exam: Present: PERRL, conjuntiva pink, sclera anicteric Pupils: Present: PERRL - Neck Neck exam general surgery: Present: supple, trachea midline. Absent: lymphadenopathy - Respiratory Respiratory exam: Present: CTAB. Absent: accessory muscle use, rales, rhonchi, wheezes - Cardiovascular Cardiovascular exam: Present: RRR, +S1, +S2. Absent: diastolic murmur, gallop, rubs, systolic murmur - GI/Abdominal GI/Abdominal exam: Present: normal bowel sounds, soft, no peritoneal signs. Absent: distended, tenderness - Extremities Exam Extremities exam: Present: warm, radial pulses palpable and symmetrical. Absent: calf tenderness, cyanotic, pedal edema - Neurological Exam Neurological exam: Present: CN II-XII intact, oriented X3, no focal deficits. Absent: pronater drift, facial droop, speech deficit - Skin Skin exam: Present: dry, intact Internal Med - H&P Results - Labs CBC & Chem 7: 01/06/19 10:10 01/06/19 08:46 Labs: Short CBC 01/06/19 Range/Units 10:10 WBC 7.5 (4.3-11.1) K/mcL Hgb 11.9 L (12.9-16.9) g/dL Hct 36.6 L (37.5-50.1) % Plt Count 143 (140-400) K/mcL Neutrophils # 5.3 (1.6-8.9) K/mcL BMP 01/06/19 08:46 Sodium 136 Potassium 4.8 Chloride 99 Carbon Dioxide 28 BUN 53 H Creatinine 2.97 H Glucose 141 H Calcium 9.1 Cardiac Enzymes 01/06/19 01/06/19 Range/Units 08:46 08:46 Troponin I 0.03 TNP (< 0.04) ng/mL Urine 01/06/19 Range/Units 09:45 Urine Color Yellow (Yellow) Urine Clarity Clear (Clear) Urine pH 6.5 (5.0-8.0) pH Units Ur Specific [place] 1.015 (1.010-1.025) Urine Protein 30 H (Neg-Trace) mg/dL Urine Glucose (UA) Normal (Normal) mg/dL - Impressions ITS Impressions Cervical Spine CT 01/06/19 07:51 IMPRESSION: No acute intracranial abnormality. Chronic microvascular ischemic changes. No cervical spine fracture or dislocation. Multilevel degenerative changes. D/ / Randy Ceballos / Randy Ceballos Interpreting Provider: Randy Ceballos Head CT 01/06/19 07:51 IMPRESSION: No acute intracranial abnormality. Chronic microvascular ischemic changes. No cervical spine fracture or dislocation. Multilevel degenerative changes. D/ / Randy Ceballos / Randy Ceballos Interpreting Provider: Randy Ceballos Chest X-Ray 01/06/19 07:53 IMPRESSION: No evidence of acute process. D/ / Randy Ceballos / Randy Ceballos Interpreting Provider: Randy Ceballos Hip/Pelvis X-Ray 01/06/19 07:53 IMPRESSION: Normal bilateral hip alignment with no acute fracture. D/ / 01/06/2019 08:46:48 Wilner Theodore MD / june Interpreting Provider: Wilner Theodore MD Elbow X-Ray 01/06/19 08:10 IMPRESSION: 1. No acute radiographic finding to account for patient's right arm or elbow pain. 2. Osteopenia. D/ / Patrick Huff MD / Patrick Huff MD Interpreting Provider: Patrick Huff MD Humerus X-Ray 01/06/19 08:10 IMPRESSION: 1. No acute radiographic finding to account for patient's right arm or elbow pain. 2. Osteopenia. D/ / Patrick Huff MD / Patrick Huff MD Interpreting Provider: Patrick Huff MD - Assessment and Plan (1) Fall Current Visit: Yes Status: Acute Assessment and plan: Presented with lower extremity weakness. He denied focal deficits. Neuro exam was unremarkable outside of patient hard of hearing. Labs are at baseline outside of slightly higher creatinine and CK borderline elevated, likely from fall. Continue gentle IV fluid hydration. Could be related to physical deconditioning as his states that he ambulates on his own but usually very very slowly. Will have PT/OT evaluate patient. Qualifiers: Encounter type: initial encounter Qualified Code(s): W19.XXXA - Unspecified fall, initial encounter (2) Lower extremity weakness Current Visit: Yes Status: Acute Assessment and plan: No focal deficits. See plan above. Qualifiers: Laterality: bilateral Qualified Code(s): R29.898 - Other symptoms and signs involving the musculoskeletal system (3) Afib Current Visit: No Status: Acute Assessment and plan: Resume coumadin, atenolol Qualifiers: Atrial fibrillation type: persistent Qualified Code(s): I48.1 - Persistent atrial fibrillation (4) CAD (coronary artery disease) Current Visit: No Status: Chronic Assessment and plan: Resume home medications. No acute issues. Qualifiers: Coronary Disease-Associated Artery/Lesion type: [place] artery [place] vs. transplanted heart: [place] heart Associated angina: without angina Qualified Code(s): I25.10 - Atherosclerotic heart disease of [place] coronary artery wi thout angina pectoris (5) CKD stage 4 due to type 2 diabetes mellitus Current Visit: No Status: Chronic Assessment and plan: Today cr is 2.9, baseline appears to be 2.3-2.6. Give gentle IV fluid hydration and recheck in AM. (6) DVT prophylaxis Current Visit: No Status: Acute Assessment and plan: on coumadin - Time Spent With Patient Total time spent is greater than 50% in coordination of care (as documented) at patient's floor/unit and/or counseling patient:
[2019-01-06] MEDS ORDERED: Dextrose Gel 15 GM/37.5 ML TUBE PO PRN ×2 (11:47)
[2019-01-06] MEDS ORDERED: *HR* Dextrose 50 % in Water (Syg) 50 ML SYRINGE IVP PRN (11:47)
[2019-01-06] MEDS ORDERED: D5% in Water 1,000 ML IVC PRN (11:47)
[2019-01-06] MEDS ORDERED: Insulin LISPRO 300 UNITS/3 ML VIAL SQ SCH ×2 (12:00→21:00)
[2019-01-06] MEDS: Insulin LISPRO 300 UNITS/3 ML VIAL SQ SCH ×3 (12:56→21:12)
[2019-01-07 06:07] LABS: INR 1.6; Prothrombin Time 18.4 Seconds (9.4-12.1)
[2019-01-07 06:30] LABS: Calcium 8.8 mg/dL (8.6-10.3); Potassium 4.2 mEq/L (3.5-5.1)
[2019-01-07] MEDS: 0.9 % Sodium Chloride 1,000 ML IVC SCH ×3 (06:52→17:25)
[2019-01-07] MEDS: Insulin LISPRO 300 UNITS/3 ML VIAL SQ SCH ×4 (08:02→20:26)
--- NOTE | 2019-01-07 12:35 | Internal Med Progress Note ---
Hospitalist Progress Note - Encounter Date of Encounter: 01/07/19 Time of Encounter: 11:15 - Subjective Interval History: Patient is seen at bedside. Denies any chest pain, shortness of breath, fever. Still feels that he is very weak. He is unable to describe any weakness specifically, says that he feels that his legs are weak. No other overnight estefany nts. - Exam Vitals: Temp Pulse Resp BP Pulse Ox 98.1 F 65 19 109/65 98 01/07/19 11:45 01/07/19 11:45 01/07/19 11:45 01/07/19 11:45 01/07/19 11:45 Exam: General: Alert and oriented, no physical distress, able to follow commands. Respiratory: Normal vesicular breathing, no added sounds, breathing equal in both sides. CVS: Normal heart sounds, no murmurs, no edema. Extremities: No peripheral edema, peripheral pulses intact. Lymph nodes: No lymphadenopathy Gastrointestinal: Soft, nontender abdomen, normal abdominal sounds. No distention noted. Genitourinary: No paravertebral tenderness. Neurological: Alert and oriented. No focal deficits. Cranial nerves II-XII intact. Normal reflexes. Normal sensations, normal power 5/5 in all extremities. - Assessment and Plan (1) Lower extremity weakness Current Visit: Yes Status: Acute Assessment and Plan: -[place] deconditining -Neurological examination unremarkable. No loss of sensation and power. PT/OT consult. Continue supportive measures. (2) CAD (coronary artery disease) Current Visit: No Status: Chronic Assessment and Plan: Medication have not been reconsulted. we will resume home medication once the medications reconciled -No active issues at this point (3) CKD stage 4 due to type 2 diabetes mellitus Current Visit: No Status: Chronic Assessment and Plan: -Baseline around 2.3 -Current 2.6, improved from 2.97 -Continue IV hydration. (4) Afib Current Visit: No Status: Acute Assessment and Plan: -Atenolol for the rate control -COumadin for AC, INR is 1.6 today (5) DVT prophylaxis Current Visit: No Status: Acute Assessment and Plan: on coumadin (6) Fall Current Visit: Yes Status: Acute Assessment and Plan: -Likely 2/2 deconditning -Plan mentioned above -PT/OT Fall precautions. (7) Diabetes mellitus Current Visit: No Status: Chronic Assessment and Plan: -Blood glucose levels in reasonable range. -HOld home meds -LDSS ordered - Time Spent with Patient Total time spent is greater than 50% in coordination of care (as documented) at patient's floor/unit and/or counseling patient: Internal Medicine: Result - Labs CBC & Chem 7: 01/06/19 10:10 01/07/19 05:21 Labs: BMP 01/07/19 05:21 Sodium 137 Potassium 4.2 Chloride 103 Carbon Dioxide 27 BUN 48 H Creatinine 2.66 H Glucose 105 Calcium 8.8 - ABG Interpretation ABG results: PT/INR, D-dimer PT 18.4 Seconds (9.4-12.1) H 01/07/19 05:21 Consult Discharge Plan - Plan Referrals: Pedro Tubbs MD [Primary Care Provider] - (1) Lower extremity weakness Qualifiers: Laterality: bilateral Qualified Code(s): R29.898 - Other symptoms and signs involving the musculoskeletal system (2) CAD (coronary artery disease) Qualifiers: Coronary Disease-Associated Artery/Lesion type: [place] artery [place] vs. transplanted heart: [place] heart Associated angina: without angina Qualified Code(s): I25.10 - Atherosclerotic heart disease of [place] coronary artery without angina pectoris (4) Afib Qualifiers: Atrial fibrillation type: persistent Qualified Code(s): I48.1 - Persistent atrial fibrillation (6) Fall Qualifiers: Encounter type: initial encounter Qualified Code(s): W19.XXXA - Unspecified fall, initial encounter (7) Diabetes mellitus Qualifiers: Diabetes mellitus type: type 2 Diabetes mellitus senior care insulin use: with long term acute care registered nurse use Diabetes mellitus complication status: with kidney complications Diabetes mellitus complication detail: with chronic kidney disease Chronic kidney disease stage: stage 4 (severe) Qualified Code(s): E11.22 - Type 2 diabetes mellitus with diabetic chronic kidney disease; N18.4 - Chronic kidney disease, stage 4 (severe); Z79.4 - long-term (current) use of insulin
[2019-01-07] MEDS ORDERED: *HR* Warfarin 2.5 MG TABLET PO SCH (14:00)
[2019-01-07] MEDS ORDERED: *HR* Warfarin 2.5 MG TABLET PO ONE (18:00)
[2019-01-07] MEDS ORDERED: Warfarin perPT PO PRN (18:00)
[2019-01-07] MEDS ORDERED: Insulin DETEMIR 100 UNIT/ML X5UNITS SQ SCH (21:00)
[2019-01-08 04:41] LABS: Basophils % 0.7 %; Hematocrit 35.9 % (37.5-50.1); Hemoglobin 11.5 g/dL (12.9-16.9); Immature Granulocytes % 0.2 % (0-4); Lymphocytes # 1.8 K/mcL (0.6-4.6); Lymphocytes % 30.3 %; Mean Corpuscular Hemoglobin 30.9 pg (28.0-33.3); Mean Corpuscular Volume 96.5 fL (83.0-100.0); Mean Platelet Volume 10.3 fL (9.4-12.4); Monocytes # 0.6 K/mcL (0.0-1.3); Monocytes % 9.6 %; Neutrophils # 3.5 K/mcL (1.6-8.9); Platelet Count 165 K/mcL (140-400); Red Blood Count 3.72 M/mcL (4.19-5.50); Red Cell Distribution Width 14.2 % (11.5-14.5); Segmented Neutrophils % 59.2 %
[2019-01-08 04:44] LABS: INR 1.4; Prothrombin Time 16.4 Seconds (9.4-12.1)
[2019-01-08 04:57] LABS: Calcium 8.9 mg/dL (8.6-10.3); Potassium 4.3 mEq/L (3.5-5.1)
[2019-01-08] MEDS: 0.9 % Sodium Chloride 1,000 ML IVC SCH (05:44)
[2019-01-08] MEDS: Insulin LISPRO 300 UNITS/3 ML VIAL SQ SCH ×2 (08:13→11:34)
[2019-01-08] MEDS ORDERED: Fenofibrate 54 MG TABLET PO SCH (09:00)
[2019-01-08] MEDS ORDERED: Aspirin Enteric Coated 81 MG Tablet PO SCH (09:00)
[2019-01-08] MEDS ORDERED: NON-FORMULARY MEDICATION 1 EACH EACH (Omega-3/Dha/Epa/Fish Oil [Fish Oil 1,000 Mg Softgel] PO SCH (09:00)
[2019-01-08] MEDS ORDERED: Cholecalciferol (D-3) 1,000 UNIT (25MCG) TABLET PO SCH (09:00)
[2019-01-08 11:32] VITALS: BP 128/58
--- NOTE | 2019-01-08 12:02 | Discharge Summary ---
- NOTES TO OUTPATIENT PROVIDER Notes to Outpatient Provider: Patient will need close follow-up for INR monitoring given currently subtherapeutic. Patient will need follow-up with nephrology as outpatient if not already following. Orders not resulted at time of discharge: Pending orders 01/06/19 07:52 EKG [ECG 12 lead ECG] [ECG] Stat 01/09/19 04:00 PT/INR [Prothrombin Time INR] [COAG] AM 0400 Date of Encounter: 01/08/19 Time of Encounter: 09:59 - Discharge Diagnosis (1) Diabetes mellitus Priority: Secondary Status: Chronic Qualifiers: Diabetes mellitus type: type 2 Diabetes mellitus [place] insulin use: with oyst[place] use Diabetes mellitus complication status: with kidney comp lications Diabetes mellitus complication detail: with chronic kidney disease Chronic kidney disease stage: stage 4 (severe) Qualified Code(s): E11.22 - Type 2 diabetes mellitus with diabetic chronic kidney disease; N18.4 - Chronic kidney disease, stage 4 (severe); Z79.4 - alf (current) use of insulin (2) CAD (coronary artery disease) Priority: Secondary Status: Chronic Qualifiers: Coronary Disease-Associated Artery/Lesion type: [place] artery [place] vs. transplanted heart: [place] heart Associated angina: without angina Qualified Code(s): I25.10 - Atherosclerotic heart disease of [place] coronary artery without angina pectoris (3) CKD stage 4 due to type 2 diabetes mellitus Priority: Secondary Status: Chronic (4) Afib Priority: Secondary Status: Acute Qualifiers: Atrial fibrillation type: persistent Qualified Code(s): I48.1 - Persistent atrial fibrillation (5) DVT prophylaxis Priority: Secondary Status: Acute (6) Lower extremity weakness Priority: Primary Status: Acute Qualifiers: Laterality: bilateral Qualified Code(s): R29.898 - Other symptoms and signs involving the musculoskeletal system (7) Fall Priority: Primary Status: Acute Qualifiers: Encounter type: initial encounter Qualified Code(s): W19.XXXA - Unspecified fall, initial encounter Hospital course: Mr. Arredondo is a 88 year old male with past medical history of diabetes, CAD, CVA, A. fib on Coumadin, CK 80 came in after a fall with complaint of lower extremity weakness. Found to have subtherapeutic INR. CT head was without any acute abnormality as well as CT spine was unremarkable for acute abnormality. 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 She did not have any focal deficit. Patient was seen by physical therapy and did well with them and they did not recommend any rehabilitation. Patient renal function remained stable and IV fluids were stopped. Patient fall likely multifactorial including past CVA, possible neuropathy and/or deconditioning. Patient will need outpatient follow-up for INR monitoring. Discharge discussed with: patient, nurse - Time Spent with Patient Total time spent providing and/or coordinating discharge services: Time spent: Less than 30 minutes, Greater than 30 minutes - Discharge Medications Prescriptions: Continued Atorvastatin [Lipitor] 40 mg PO DAILY Atenolol [Tenormin] 100 mg PO DAILY Lisinopril/Hydrochlorothiazide [Zestoretic 20-25 mg Tablet] 1 tab PO DAILY Insulin Glargine,Hum.rec.anlog [Lantus Solostar] 10 unit SQ HS Aspirin [Lo-Dose Aspirin EC] 81 mg PO DAILY [place]-3/Dha/Epa/Fish Oil [Fish Oil 1,000 mg Softgel] 1 cap PO DAILY Cholecalciferol (Vitamin D3) [Dialyvite Vitamin D] 5,000 units PO DAILY Fenofibrate,Micronized [Fenofibrate] 130 mg PO DAILY Furosemide [Lasix] 20 mg PO QAM Warfarin Sodium 1.25 mg PO MOTUTHSA Warfarin [Coumadin] 2.5 mg PO SUWEFR Home Medications: Atenolol [Tenormin] 100 mg PO DAILY 09/30/15 [History] Atorvastatin [Lipitor] 40 mg PO DAILY 09/30/15 [History] Insulin Glargine,Hum.rec.anlog [Lantus Solostar] 10 unit SQ HS 09/30/15 [History] Lisinopril/Hydrochlorothiazide [Zestoretic 20-25 mg Tablet] 1 tab PO DAILY 09/30/15 [History] Aspirin [Lo-Dose Aspirin EC] 81 mg PO DAILY 11/26/17 [History] [place]-3/Dha/Epa/Fish Oil [Fish Oil 1,000 mg Softgel] 1 cap PO DAILY 11/26/17 [History] Cholecalciferol (Vitamin D3) [Dialyvite Vitamin D] 5,000 units PO DAILY 01/07/19 [History] Fenofibrate,Micronized [Fenofibrate] 130 mg PO DAILY 01/07/19 [History] Furosemide [Lasix] 20 mg PO QAM 01/07/19 [History] Warfarin Sodium 1.25 mg PO MOTUTHSA 01/07/19 [History] Warfarin [Coumadin] 2.5 mg PO SUWEFR 01/07/19 [History] Allergies/Adverse Reactions: Allergy/AdvReac Type Severity Reaction Status Date / Time No Known Allergies Allergy Verified 01/07/19 12:56 Date of admission: 01/06/19 10:53 Primary care physician: Pedro Tubbs MD Consults: 01/06/19 12:23 Consult to Shipping Checker [CONS] Routine Reason for SW Consult: potential therapy needs at discharge along with home health Discharging clinician: Octavio Nguyen - Constitutional Vitals: Temp Pulse Resp BP Pulse Ox 97.7 F 53 18 128/58 98 01/08/19 11:31 01/08/19 11:31 01/08/19 11:31 01/08/19 11:31 01/08/19 11:31 General appearance: Present: A&O X 3 Exam: General: In no acute distress. Respiratory exam: CTAB. no accessory muscle use, rales, rhonchi, wheezes Cardiovascular exam: RRR, +S1, +S2. no murmur, gallop, rubs. GI/Abdominal exam: Non-tender, Non-distended, normal bowel sounds, soft, no peritoneal signs. Extremities exam: no pedal edema, pulses palpable in b/l lower extremities. no calf tenderness Neurological exam: CN II-XII intact, AO X3, no focal deficits. Skin exam: No skin rash - Patient Status Disposition: Home, Self-Care Condition: Fair - Discharge Instructions Follow Up With: Pedro Tubbs MD [Primary Care Provider] - - Diet and Activity Activity: increase activity as tolerated
--- NOTE | 2019-01-08 14:25 | Physician Discharge Referral ---
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 For more information, call the [place] Tobacco Quit Line at 4-131-LFIZ-NOW. - Services Needed Following services are medically necessary services: Nursing, Home Health Aide, Physical Therapy, Occupational Therapy - Transfer Medications Home Medications: Atenolol [Tenormin] 100 mg PO DAILY 09/30/15 [History] Atorvastatin [Lipitor] 40 mg PO DAILY 09/30/15 [History] Insulin Glargine,Hum.rec.anlog [Lantus Solostar] 10 unit SQ HS 09/30/15 [History] Lisinopril/Hydrochlorothiazide [Zestoretic 20-25 mg Tablet] 1 tab PO DAILY 09/30/15 [History] Aspirin [Lo-Dose Aspirin EC] 81 mg PO DAILY 11/26/17 [History] [place]-3/Dha/Epa/Fish Oil [Fish Oil 1,000 mg Softgel] 1 cap PO DAILY 11/26/17 [History] Cholecalciferol (Vitamin D3) [Dialyvite Vitamin D] 5,000 units PO DAILY 01/07/19 [History] Fenofibrate,Micronized [Fenofibrate] 130 mg PO DAILY 01/07/19 [History] Furosemide [Lasix] 20 mg PO QAM 01/07/19 [History] Warfarin Sodium 1.25 mg PO MOTUTHSA 01/07/19 [History] Warfarin [Coumadin] 2.5 mg PO SUWEFR 01/07/19 [History] Allergies/Adverse Reactions: Allergy/AdvReac Type Severity Reaction Status Date / Time No Known Allergies Allergy Verified 01/07/19 12:56 Certification: Further, I certify that my clinical findings support that this patient is homebound (i.e. absences from home require considerable and taxing effort and are for medical reasons or hindu services or infrequently or short duration when for other reasons) because: Homebound Reason: Patient requires assistance of a person or device to safely leave home Attestation: My signature below is to certify that this patient is under my care and that I, or nurse practitioner, or a physician's pastrycook's assistant working with me, has a [id number] encounter with this patient.
[2019-01-08] MEDS ORDERED: *HR* Warfarin 2.5 MG TABLET PO ONE (18:00)
--- NOTE | 2019-01-08 23:35 | Electrocardiograph Report ---
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
== END 2019-01-08 15:12 | disposition home or self-care (01) ==
LOC: 2ANU 07:32 → EMEROOARM 07:32 → SUATTDRO 10:53 → 2ANU 11:33
PROVIDERS: ADMIT Student in an Organized Health Care Education/Training Program; ATTEND Internal Medicine

== ENCOUNTER 2019-08-11 15:24 | Inpatient (IN) ==
[2019-08-11] MEDS ORDERED: Pantoprazole 40 MG VIAL IVP ONE (15:43)
[2019-08-11 16:01] LABS: VBG HCO3 24 mEq/L (21-27); VBG PCO2 50 mmHg (41-51); VBG PH 7.28 pH Units (7.32-7.42); VBG PO2 46 mmHg (25-50)
[2019-08-11 16:10] LABS: INR 2.8; Prothrombin Time 31.3 Seconds (9.4-12.1)
[2019-08-11 16:11] LABS: Activated Partial Thrombo Time 34.7 Seconds (26.0-36.0)
[2019-08-11 16:16] LABS: Basophils % 0.2 %; Hematocrit 20.7 % (37.5-50.1); Hemoglobin 6.7 g/dL (12.9-16.9); Immature Granulocytes % 1.4 % (0-4); Lymphocytes # 1.1 K/mcL (0.6-4.6); Lymphocytes % 9.7 %; Mean Corpuscular HGB Conc 32.4 g/dL (31.6-35.5); Mean Corpuscular Hemoglobin 32.1 pg (28.0-33.3); Mean Platelet Volume 10.2 fL (9.4-12.4); Monocytes # 0.6 K/mcL (0.0-1.3); Monocytes % 5.3 %; Neutrophils # 9.5 K/mcL (1.6-8.9); Nucleated Red Blood Cells 0.8 /100 WBC (0); Platelet Count 229 K/mcL (140-400); Red Blood Count 2.09 M/mcL (4.19-5.50); Red Cell Distribution Width 15.4 % (11.5-14.5); Segmented Neutrophils % 83.4 %; White Blood Count 11.4 K/mcL (4.3-11.1)
[2019-08-11] MEDS ORDERED: 0.9 % Sodium Chloride 1,000 ML IVC ONE (16:28)
[2019-08-11 16:42] LABS: Albumin 3.1 g/dL (3.5-5.7); Albumin/Globulin Ratio 1.1 (1.1-2.2); Bilirubin,Direct 0.2 mg/dL (0.0-0.2); Bilirubin,Indirect 0.3 mg/dL (0.0-1.0); Bilirubin,Total 0.5 mg/dL (0.3-1.0); Calcium 8.9 mg/dL (8.6-10.3); Globulin 2.9 g/dL (2.4-3.5); Magnesium 1.9 mg/dL (1.6-2.6); Potassium 5.3 mEq/L (3.5-5.1); Troponin I 0.43 ng/mL (< 0.04)
[2019-08-11] MEDS ORDERED: Piperacillin/Tazobactam 3.375 GM in 0.9 % Sodium Chloride Mini Bag 100 ML IVPB ONE (16:56)
[2019-08-11] MEDS ORDERED: 0.9 % Sodium Chloride 250 ML ONE ×3 (17:18→22:29)
[2019-08-11] MEDS ORDERED: Ondansetron 4 MG/2 ML VIAL IVP PRN (18:24)
[2019-08-11] MEDS ORDERED: Naloxone 0.4 MG/ML INJ IVP PRN (18:24)
[2019-08-11] MEDS ORDERED: *HR* Dextrose 50 % in Water (Syg) 50 ML SYRINGE IVP PRN (18:31)
[2019-08-11] MEDS ORDERED: Dextrose Gel 15 GM/37.5 ML TUBE PO PRN ×2 (18:31)
[2019-08-11] MEDS ORDERED: D5% in Water 1,000 ML IVC PRN (18:31)
[2019-08-11] MEDS: 0.9 % Sodium Chloride 1,000 ML IVC SCH (21:02)
[2019-08-11] MEDS: Insulin DETEMIR 100 UNIT/ML X5UNITS SQ SCH (21:14)
[2019-08-11] MEDS: Cholecalciferol (D-3) 1,000 UNIT (25MCG) TABLET PO SCH (21:35)
[2019-08-12 02:16] LABS: Hematocrit 25.5 % (37.5-50.1); Mean Corpuscular HGB Conc 32.9 g/dL (31.6-35.5); Mean Corpuscular Volume 94.1 fL (83.0-100.0); Mean Platelet Volume 10.1 fL (9.4-12.4); Platelet Count 172 K/mcL (140-400); Red Blood Count 2.71 M/mcL (4.19-5.50); Red Cell Distribution Width 15.7 % (11.5-14.5); White Blood Count 10.8 K/mcL (4.3-11.1)
[2019-08-12 02:20] LABS: Hemoglobin 8.4 g/dL (12.9-16.9)
[2019-08-12 02:41] LABS: Albumin 3.1 g/dL (3.5-5.7); Albumin/Globulin Ratio 1.1 (1.1-2.2); Bilirubin,Total 1.8 mg/dL (0.3-1.0); Calcium 8.8 mg/dL (8.6-10.3); Globulin 2.9 g/dL (2.4-3.5); Potassium 4.6 mEq/L (3.5-5.1)
[2019-08-12 02:50] LABS: Troponin I 0.52 ng/mL (< 0.04)
[2019-08-12 04:58] LABS: Bilirubin,Urine Negative (Negative); Blood,Urine Negative (Negative); Clarity,Urine Clear (Clear); Color,Urine Yellow (Yellow); Glucose,Urine (UA) Normal (Normal); Ketones,Urine Negative (Negative); Leukocyte Esterase,Urine Negative (Negative); Nitrite,Urine Negative (Negative); PH,Urine 5.5 pH Units (5.0-8.0); Protein,Urine Trace mg/dL (Neg-Trace); Specific Gravity,Urine 1.025 (1.010-1.025); Urobilinogen,Urine Normal (Normal)
[2019-08-12] MEDS: Insulin LISPRO 300 UNITS/3 ML VIAL SQ SCH ×3 (07:45→17:38)
[2019-08-12] MEDS ORDERED: NON-FORMULARY MEDICATION 1 EACH EACH (Omega-3/Dha/Epa/Fish Oil [Fish Oil 1,000 Mg Softgel] PO SCH (09:00)
[2019-08-12 11:10] LABS: INR 1.6; Prothrombin Time 17.8 Seconds (9.4-12.1)
[2019-08-12] MEDS ORDERED: Lidocaine -MPF 2% 2 ML VIAL ONE (13:35)
[2019-08-12] MEDS ORDERED: Propofol 500 MG/50 ML INFUS..BTL ONE (13:36)
[2019-08-12] MEDS ORDERED: *HR* PHENYLEPHRINE 1,000 MCG/10 ML SYRINGE IVP ONE (14:08)
[2019-08-12] MEDS: Pantoprazole 40 MG VIAL IVP SCH (17:38)
[2019-08-12] MEDS: 0.9 % Sodium Chloride 1,000 ML IVC SCH (21:57)
[2019-08-12] MEDS: Acetaminophen 325 MG TABLET PO PRN (21:58)
[2019-08-12] MEDS: Insulin DETEMIR 100 UNIT/ML X5UNITS SQ SCH (22:06)
[2019-08-13] MEDS: Pantoprazole 40 MG VIAL IVP SCH ×2 (06:00→17:40)
[2019-08-13 06:34] LABS: Hematocrit 27.5 % (37.5-50.1); Hemoglobin 8.5 g/dL (12.9-16.9); Mean Corpuscular HGB Conc 30.9 g/dL (31.6-35.5); Mean Corpuscular Hemoglobin 30.2 pg (28.0-33.3); Mean Corpuscular Volume 97.9 fL (83.0-100.0); Mean Platelet Volume 9.6 fL (9.4-12.4); Platelet Count 161 K/mcL (140-400); Red Blood Count 2.81 M/mcL (4.19-5.50); White Blood Count 10.2 K/mcL (4.3-11.1)
[2019-08-13 06:50] LABS: Calcium 8.8 mg/dL (8.6-10.3); Potassium 4.3 mEq/L (3.5-5.1)
[2019-08-13] MEDS: Insulin LISPRO 300 UNITS/3 ML VIAL SQ SCH ×3 (08:12→17:26)
[2019-08-13] MEDS: Acetaminophen 325 MG TABLET PO PRN (11:34)
[2019-08-13] MEDS: Haloperidol Lactate 5 MG/ML VIAL IVP PRN (15:05)
[2019-08-13] MEDS: Piperacillin/Tazobactam 3.375 GM in 0.9 % Sodium Chloride Mini Bag 100 ML IVPB SCH (17:45)
[2019-08-13] MEDS: Cholecalciferol (D-3) 1,000 UNIT (25MCG) TABLET PO SCH (17:49)
[2019-08-13] MEDS: Insulin DETEMIR 100 UNIT/ML X5UNITS SQ SCH (21:25)
[2019-08-14] MEDS: Pantoprazole 40 MG VIAL IVP SCH ×2 (05:09→17:31)
[2019-08-14] MEDS: Piperacillin/Tazobactam 3.375 GM in 0.9 % Sodium Chloride Mini Bag 100 ML IVPB SCH ×3 (05:09→21:06)
[2019-08-14 06:25] LABS: Hematocrit 28.9 % (37.5-50.1)
[2019-08-14 06:39] LABS: Calcium 8.7 mg/dL (8.6-10.3); Potassium 4.4 mEq/L (3.5-5.1)
[2019-08-14] MEDS: Insulin LISPRO 300 UNITS/3 ML VIAL SQ SCH ×3 (09:51→17:31)
[2019-08-14] MEDS: Haloperidol Lactate 5 MG/ML VIAL IVP PRN (13:53)
[2019-08-14] MEDS ORDERED: Furosemide 20 MG/2 ML VIAL IVP ONE (16:04)
[2019-08-14] MEDS: Insulin DETEMIR 100 UNIT/ML X5UNITS SQ SCH (21:06)
[2019-08-15] MEDS: Haloperidol Lactate 5 MG/ML VIAL IVP PRN ×2 (01:21→07:31)
[2019-08-15] MEDS: Piperacillin/Tazobactam 3.375 GM in 0.9 % Sodium Chloride Mini Bag 100 ML IVPB SCH ×3 (05:29→21:37)
[2019-08-15] MEDS: Pantoprazole 40 MG VIAL IVP SCH ×2 (05:29→18:29)
[2019-08-15] MEDS: Insulin LISPRO 300 UNITS/3 ML VIAL SQ SCH ×3 (07:13→18:30)
[2019-08-15 10:12] LABS: Hemoglobin 9.1 g/dL (12.9-16.9); Mean Corpuscular HGB Conc 31.4 g/dL (31.6-35.5); Mean Corpuscular Volume 102.1 fL (83.0-100.0); Mean Platelet Volume 9.7 fL (9.4-12.4); Platelet Count 135 K/mcL (140-400); Red Blood Count 2.84 M/mcL (4.19-5.50); White Blood Count 7.5 K/mcL (4.3-11.1)
[2019-08-15 10:24] LABS: Calcium 8.8 mg/dL (8.6-10.3); Potassium 4.1 mEq/L (3.5-5.1)
[2019-08-15] MEDS: Haloperidol Lactate 5 MG/ML VIAL IVP SCH ×3 (12:03→23:42)
[2019-08-15] MEDS ORDERED: 0.9 % Sodium Chloride 1,000 ML IVC SCH (12:30)
[2019-08-15] MEDS ORDERED: SODIUM CHLORIDE/NAHCO3/KCL/PEG 4,000 ML SOLN.RECON PO ONE (16:00)
[2019-08-15] MEDS: Cholecalciferol (D-3) 1,000 UNIT (25MCG) TABLET PO SCH (18:31)
[2019-08-15] MEDS: Insulin DETEMIR 100 UNIT/ML X5UNITS SQ SCH (21:41)
[2019-08-16 05:30] LABS: Hematocrit 32.1 % (37.5-50.1); Hemoglobin 10.1 g/dL (12.9-16.9); Mean Corpuscular HGB Conc 31.5 g/dL (31.6-35.5); Mean Corpuscular Hemoglobin 33.4 pg (28.0-33.3); Mean Corpuscular Volume 106.3 fL (83.0-100.0); Mean Platelet Volume 10.5 fL (9.4-12.4); Platelet Count 136 K/mcL (140-400); Red Blood Count 3.02 M/mcL (4.19-5.50); Red Cell Distribution Width 20.1 % (11.5-14.5); White Blood Count 6.4 K/mcL (4.3-11.1)
[2019-08-16] MEDS: Piperacillin/Tazobactam 3.375 GM in 0.9 % Sodium Chloride Mini Bag 100 ML IVPB SCH (06:08)
[2019-08-16] MEDS: Pantoprazole 40 MG VIAL IVP SCH (06:08)
[2019-08-16] MEDS: Haloperidol Lactate 5 MG/ML VIAL IVP SCH (06:10)
[2019-08-16 06:17] LABS: Calcium 8.8 mg/dL (8.6-10.3)
[2019-08-16] MEDS: Insulin LISPRO 300 UNITS/3 ML VIAL SQ SCH (07:54)
[2019-08-16 11:26] VITALS: BP 151/74
== END 2019-08-16 13:50 | disposition expired | DRG 177 ==
LOC: EMEROOARM 15:24 → 2NNU 15:24 → 3ANU 08-13 16:56
PROVIDERS: ADMIT Internal Medicine; ATTEND Internal Medicine
PROC: ENDOEBX (2019-08-12 14:30)